=== PATIENT | male | born 1965 | race Caucasian/White ===

== ENCOUNTER 2022-10-10 09:14 | Outpatient (OUT) | payer MEDICARE, SELFPAY | END 2022-10-10 09:15 | LOC: CARD 09:16 | PROVIDERS: PCP Nurse Practitioner Family; Visit Provider Internal Medicine Interventional Cardiology | DX: I73.9 Peripheral vascular disease, unspecified (principal) | CPT/HCPCS: 93923 ==

== ENCOUNTER 2022-11-26 08:20 | Outpatient (OUT) | payer MEDICARE, SELFPAY ==
[2022-11-26 08:56] LABS: Basophils Percent Auto 0.2 % (0.2-2.0); Eosinophils Absolute Auto 0.1 10^3/uL (0.0-0.7); Eosinophils Percent Auto 1.6 % (0.9-7.0); Hematocrit 35.8 % (42.0-54.0); Hemoglobin 13.1 g/dL (14.0-18.0); Immature Granulocytes Abs Auto 0.03 10^3/uL (0.00-0.03); Immature Granulocytes Pct Auto 0.3 % (0.0-0.5); Lymphocytes Absolute Auto 2.7 10^3/uL (1.2-3.8); Lymphocytes Percent Auto 30.3 % (20.5-60.0); Mean Corpuscular HGB Conc 36.6 g/dL (29.9-35.2); Mean Corpuscular Hemoglobin 31.7 pg (25.9-34.0); Mean Corpuscular Volume 86.7 fL (80.0-94.0); Mean Platelet Volume 8.9 fL (9.5-13.5); Monocytes Absolute Auto 0.8 10^3/uL (0.3-0.8); Monocytes Percent Auto 8.4 % (1.7-12.0); Neutrophils Absolute Auto 5.3 10^3/uL (1.4-6.5); Neutrophils Percent Auto 59.2 % (43.0-75.0); Platelet Count 212 10^3/uL (150-450); Red Blood Count 4.13 10^6/uL (4.70-6.10); Red Cell Distribution Width 12.3 % (11.0-15.0)
[2022-11-26 10:09] LABS: Alanine Aminotransferase 34 U/L (16-63); Albumin Globulin Ratio 1.2; Albumin Level 3.9 g/dL (3.4-5.0); Alkaline Phosphatase 75 U/L (46-116); Anion Gap 10.2; Aspartate Amino Transferase 26 U/L (15-37); BUN Creatinine Ratio 9.1; Bilirubin Total 0.6 mg/dL (0.2-1.0); Calcium 8.8 mg/dL (8.5-10.1); Carbon Dioxide 27.6 mmol/L (21.0-32.0); Chloride 91 mmol/L (98-107); Chol HDL Ratio 2.4; Cholesterol 100 mg/dL (<=200); Estimated GFR (African America >60 (>=60); Estimated GFR (Non-African Ame >60 (>=60); Globulin 3.3 g/dL; Glucose 110 mg/dL (74-106); HDL Cholesterol 42 mg/dL (40-60); LDL Cholesterol Calculated 41.8 mg/dL; Potassium 4.8 mmol/L (3.5-5.1); Total Protein 7.2 g/dL (6.4-8.2); Triglycerides 81 mg/dL (<=150); VLDL CHOLESTEROL 16.2 mg/dL
[2022-11-26 10:22] LABS: Sodium 124 mmol/L (136-145)
== END 2022-11-26 08:21 | disposition home or self-care (01) ==
PROVIDERS: PCP Nurse Practitioner Family; Visit Provider Internal Medicine Interventional Cardiology
DX: E78.2 Mixed hyperlipidemia (principal)
CPT/HCPCS: 36415; 80053; 80061; 85025

== ENCOUNTER 2022-12-05 07:09 | Outpatient (RCR) | payer MEDICARE, SELFPAY | END 2022-12-10 13:52 | disposition home or self-care (01) | LOC: CR 07:09 | PROVIDERS: PCP Nurse Practitioner Family; Visit Provider Family Medicine | DX: I70.213 Atherosclerosis of native arteries of extremities with intermittent claudication, bilateral legs (principal) | CPT/HCPCS: 93668 ==

== ENCOUNTER 2023-05-10 10:20 | Outpatient (OUT) | payer MEDICARE, SELFPAY ==
[2023-05-10 10:35] LABS: Basophils Percent Auto 0.4 % (0.2-2.0); Eosinophils Absolute Auto 0.1 10^3/uL (0.0-0.7); Eosinophils Percent Auto 1.5 % (0.9-7.0); Hematocrit 38.7 % (42.0-54.0); Hemoglobin 13.7 g/dL (14.0-18.0); Immature Granulocytes Abs Auto 0.02 10^3/uL (0.00-0.03); Immature Granulocytes Pct Auto 0.3 % (0.0-0.5); Lymphocytes Absolute Auto 2.3 10^3/uL (1.2-3.8); Mean Corpuscular HGB Conc 35.4 g/dL (29.9-35.2); Mean Corpuscular Hemoglobin 31.5 pg (25.9-34.0); Mean Platelet Volume 8.6 fL (9.5-13.5); Monocytes Absolute Auto 0.5 10^3/uL (0.3-0.8); Monocytes Percent Auto 7.7 % (1.7-12.0); Neutrophils Absolute Auto 3.9 10^3/uL (1.4-6.5); Neutrophils Percent Auto 56.1 % (43.0-75.0); Platelet Count 211 10^3/uL (150-450); Red Blood Count 4.35 10^6/uL (4.70-6.10); Red Cell Distribution Width 12.6 % (11.0-15.0); White Blood Count 6.9 10^3/uL (4.0-11.0)
[2023-05-10 10:46] LABS: Estimated Average Glucose 123 mg/dL; Glycohemoglobin A1C 5.9 % (4.5-6.2)
[2023-05-10 11:17] LABS: Alanine Aminotransferase 33 U/L (16-63); Albumin Globulin Ratio 1.1; Alkaline Phosphatase 78 U/L (46-116); Anion Gap 13.7; Aspartate Amino Transferase 25 U/L (15-37); BUN Creatinine Ratio 12.8; Bilirubin Total 0.4 mg/dL (0.2-1.0); Calcium 9.2 mg/dL (8.5-10.1); Carbon Dioxide 24.5 mmol/L (21.0-32.0); Chloride 97 mmol/L (98-107); Chol HDL Ratio 3.4; Cholesterol 116 mg/dL (<=200); Estimated GFR (African America >60 (>=60); Estimated GFR (Non-African Ame >60 (>=60); Free T3 2.32 pg/mL (2.18-3.98); Globulin 3.6 g/dL; Glucose 95 mg/dL (74-106); HDL Cholesterol 34 mg/dL (40-60); Potassium 4.2 mmol/L (3.5-5.1); Sodium 131 mmol/L (136-145); Thyroid Stimulating Hormone 1.116 uIU/mL (0.358-3.740); Total Protein 7.6 g/dL (6.4-8.2); Triglycerides 168 mg/dL (<=150); Uric Acid 3.9 mg/dL (3.5-7.2); VLDL CHOLESTEROL 33.6 mg/dL
[2023-05-10 11:19] LABS: Prostate Specific Antigen Scrn 1.58 ng/mL (<=4.00)
[2023-05-11 12:07] LABS: Insulin 5.6 uIU/mL (2.6-24.9)
== END 2023-05-10 10:21 | disposition home or self-care (01) ==
PROVIDERS: PCP Nurse Practitioner Family; Visit Provider Nurse Practitioner Family
DX: I10 Essential (primary) hypertension (principal)
CPT/HCPCS: 36415; 80053; 80061; 83036; 83525; 84436; 84443; 84481; 84550; 85025; G0103

== ENCOUNTER 2024-06-15 09:16 | Outpatient (OUT) | payer OTHER, SELFPAY ==
--- OUTSIDE RECORDS SUMMARY | 2024-06-15 09:37 | XMS_ITS | CCD ---
Author Organization [facility] Care Team Providers Care Coding Assistant Name Role Phone UNKNOWN, PROVIDER Admitting Unavailable UNKNOWN, PROVIDER Attending Unavailable ORION, LISBET Referring Unavailable ORION, LISBET Primary Care Unavailable MASROOR, AURORA Admitting Unavailable MASROOR, AURORA Attending Unavailable UNKNOWN, PHYSICIAN Referring Unavailable UNKNOWN, PHYSICIAN Primary Care Unavailable [place] Procedure Practitioner Unavailab johann IZAGUIRRE, AURORA Surgeon Unavailable [place] Procedure Practitioner Unavailab EDNA Young Surgeon Unavailable ELIZABETH, ABELARDO Attending Unavailable MOUKARBEL, ABELARDO Admitting Unavailable ANTONINA, LISBET Primary Care Unavailable MOUKAJACKIE, ABELARDO Attending Unavailable MOUKARBELABELARDO Consulting Unavailable MOUKARBEL, ABELARDO Admitting Unavailable ANTONINA, LISBET Primary Care Unavailable LAUREANO, INDRA Admitting Unavailable LAUREANO, INDRA Attending Unavailable LAUREANO, INDRA Consulting Unavailable ANTONINA, LISBET Primary Care Unavailable ANTONINA, LISBET Admitting Unavailable ANTONINA, LISBET Attending Unavailable ANTONINA, LISBET Consulting Unavailable ANTONINA, LISBET Primary Care Unavailable ANTONINA, LISBET Admitting Unavailable ANTONINA, LISBET Attending Unavailable ANTONINA, LISBET Consulting Unavailable ANTONINA, LISBET Primary Care Unavailable MOUKASHAANEL, ABELARDO Attending Unavailable EDEN PERALES Attending Unavailable MOUKARBEL, ABELARDO Attending Unavailable MOUKARBEL, ABELARDO Attending Unavailable Problems Active Problems Problem Classification Problem Date Documented Date Episodic/Chronic Coronary atherosclerosis and other heart disease (6 sources) Atherosclerotic heart disease of [place] coronary artery without angina pectoris; Translations: [ASHD [place] CA W/O ANGINA PECTORIS] Onset: 10-24-2021 Chronic Disorders of lipid metabolism (2 sources) Mixed hyperlipidemia; Translations: [Mixed hyperlipidemia] Onset: 03-26-2023 Chronic Essential hypertension (3 sources) Essential (primary) hypertension; Translations: [ESSENTIAL PRIMARY HYPERTENSION] Onset: 12-26-2021 Chronic Peripheral and visceral atherosclerosis (2 sources) Peripheral vascular disease, unspecified; Translations: [Peripheral vascular disease, unspecified] Onset: 03-26-2023 Chronic Past or Other Problems Problem Classification Problem Date Documented Da te Episodic/Chronic Cardiac dysrhythmias (2 sources) Palpitations; Translations: [Palpitations] Onset: 09-23-2022 Episodic Coronary atherosclerosis and other heart disease (2 sources) Presence of aortocoronary bypass graft; Translations: [Presence of aortocoronary bypass graft] Onset: 03-26-2023 Episodic Deficiency and other anemia (5 sources) Anemia, unspecified; Translations: [ANEMIA UNSPECIFIED] Onset: 10-25-2021 Episodic Fluid and electrolyte disorders (1 source) Hypo-osmolality and hyponatremia; Translations: [HYPO-OSMOLALITY AND HYPONATREMIA] Onset: 12-26-2021 Episodic Genitourinary symptoms and ill-defined conditions (1 source) Other abnormal findings in urine; Translations: [OTHER ABNORMAL FINDINGS IN URINE] Onset: 12-26-2021 Episodic Other skin disorders (1 source) Generalized hyperhidrosis; Translations: [GENERALIZED HYPERHIDROSIS] Onset: 12-26-2021 Episodic Results Test Name Value Interpretation Reference Range Facility Office Visiton 09-16-2023 Follow-up visit [id number] Clau Keen 1965 M Date Provider Department Center 09/16/2023 EDEN BOOTHE DENIS Forrester Family History Problem Relation Age of Onset Diabetes Mother Coronary artery disease Father Family Status - Relation Status Age at Mother Father Level of Service:64991 [place] OFFICE/OUTPATIENT ESTABLISHED LOW MDM 20 MIN Reason for Visit and Comments: Coronary Artery Disease [187] Claudication [131] Normal [facility] Office Visiton 03-26-2023 Follow-up visit [id number] Clau Keen 1965 M Date Provider Department Center 03/26/2023 ABELARDO SHARIF DENIS Forrester Family History Problem Relation Age of Onset Diabetes Mother Coronary artery disease Father Family Status - Relation Status Age at Mother Father Level of Service:53691 [place] OFFICE/OUTPATIENT ESTABLISHED LOW MDM 20-29 MIN Reason for Visit and Comments: Follow-up [595151] Normal [facility] Office Visiton 11-26-2022 Follow-up visit [id number] Clau Keen 1965 M Date Provider Department Center 11/26/2022 ABELARDO SHARIF CARD [facility] Family History Problem Relation Age of Onset Diabetes Mother Coronary artery disease Father Family Status - Relation Status Age at Mother Father Level of Service:71947 [place] OFFICE/OUTPATIENT ESTABLISHED LOW MDM 20-29 MIN Reason for Visit and Comments: Follow-up [258214] - 2 month follow up Normal [facility] ECHOCARDIO M/2D COMPLETEon 0 10-09-2022 ECHOCARDIO M/2D COMPLETE Patient: CLAU KEEN Exam Date: 10/09/2022 : 1965 Gender:M Ordering : DR ABELARDO JOHNSON M.D. Admission #: [id number] Family : Order #: [id number] CLICK HERE TO VIEW EXAM ECHOCARDIOGRAM REPORT PROCEDURE: CARDIO PULMONARY ECHOCARDIO M/2D COMP INDICATIONS: CAD, Palpitations COMPARISON: None. DESCRIPTION: COMPLETE ECHOCARDIOGRAM Real-time transthoracic echocardiography with 2D, M-mode, spectral and color flow Doppler performed. QUALITY: Technical quality was good. LEFT VENTRICLE: Normal chamber size. Mild concentric left ventricular hypertrophy. Normal systolic function. Calculated left ventricular ejection fraction is normal at 65% LV EF: DIASTOLIC: Normal diastolic function. ATRIAL SEPTUM: LEFT ATRIUM: Normal chamber size. RIGHT ATRIUM: Mild dilatation. RIGHT VENTRICLE: Normal chamber size. Normal right ventricular systolic function. TRICUSPID VALVE: Normal mobility and thickness. No stenosis with mild regurgitation. Mild pulmonary hypertension. RVSP 40 mmHg MITRAL VALVE: Normal mobility and thickness. No evidence of mitral valve stenosis. There is no mitral annular calcification. Trivial mitral regurgitation. AORTIC VALVE: Normal trileaflet appearance. Mildly calcified aortic valve. Normal leaflet mobility. No evidence of aortic valve stenosis. Trivial aortic regurgitation. AORTIC ROOT: Normal diameter and appearance. PULMONIC VALVE: Normal thickness and mobility. No stenosis. No regurgitation. PERICARDIUM: No evidence of pericardial effusion. IVC: Collapses with inspirations. Normal size. PLEURA: CONCLUSION: 1. Mild concentric left ventricular hypertrophy. Normal ventricular systolic function. LVEF is 65%. 2. Normal diastolic function. 3. Mildly calcified aortic valve with no significant stenosis or regurgitation. 4. Mild tricuspid regurgitation. 5. Mildly elevated right-sided pressures. 6. No pericardial effusion. Adult Echocardiography Procedure Report Left Ventricle Left Atrium LA Volume Index (2D A2C): 47.03 ml, 47.03 ml Mitral Valve Right Ventricle Aorta Aortic Valve AoV Area (Peak Mitch): 3.64 cm2, 3.64 cm2 AoV Area (VTI): 2.94 cm2, 2.94 cm2 Tricuspid Valve Pulmonic Valve Peak Velocity: 0.97 m/s, 0.87 m/s Peak Gradient: 3.06 mm[Hg], 3.74 mm[Hg] Right Atrium Dictated by: Abelardo Johnson M.D. on 10/09/2022 at 18:18 Approved by: Abelardo Johnson M.D. on 10/09/2022 at 18:22 Normal [facility] Office Visiton 09-23-2022 Follow-up visit [id number] Clau Keen 1965 M Date Provider Department Center 09/23/2022 ABELARDO SHARIF [facility] Family History Problem Relation Age of Onset Diabetes Mother Coronary artery disease Father Family Status - Relation Status Age at Mother Father Level of Service:30435 [place] OFFICE/OUTPATIENT ESTABLISHED MOD MDM 30-39 MIN Reason for Visit and Comments: Coronary Artery Disease [187] Hyperlipidemia [182] Normal [facility] T4, T3U, FTI LABCORPon 12-22 Free Thyroxine Index 1.8 Normal 1.2-4.9 [facility] Comment on above: Performed By: #### C MP #### [facility] [address] [address] [address] Audra Herrmann T3 Uptake 32 % Normal 24-39 [facility] Comment on above: Performed By: #### C MP #### [facility] [address] [address] [address] Audra Herrmann T4 [Mass/Vol] 5.5 ug/dL Normal 4.5-12.0 [facility] Comment on above: Performed By: #### C MP #### [facility] [address] [address] [address] Audra Herrmann CBC AUTO DIFFon 12-21-2021 BASO # 0.0 103/ul Normal 0.0-0.1 [facility] Comment on above: Performed By: #### C BC #### [facility] [address] [address] [address] Audra Herrmann Basophils/100 WBC (Bld) 0.4 % Normal 0.2-2.0 [facility] Comment on above: Performed By: #### C BC #### [facility] [address] [address] [address] Audra Herrmann EO # 0.1 103/ul Normal 0.0-0.7 [facility] Comment on above: Performed By: #### C BC #### [facility] [address] [place] [address] Dr. Audra Herrmann Eosinophils/100 WBC (Bld) 1.3 % Normal 0.9-7.0 [facility] Comment on above: Performed By: #### C BC #### [facility] [address] [place] [address] Dr. Audra Herrmann Erythrocyte distribution width (RBC) [Ratio] 15.2 % Critically high 11.0-15.0 [facility] Comment on above: Performed By: #### C BC #### [facility] [address] [place] [address] Dr. Audra Herrmann Hematocrit (Bld) [Volume fraction] 42.6 % Normal 42.0-54.0 [facility] Comment on above: Performed By: #### C BC #### [facility] [address] [place] [address] Dr. Audra Herrmann Hemoglobin (Bld) [Mass/Vol] 14.8 g/dL Normal 14.0-18.0 [facility] Comment on above: Performed By: #### C BC #### [facility] [address] [place] [address] Dr. Audra Herrmann IG # 0.02 10e3/ul Normal 0.00-0.03 [facility] Comment on above: Performed By: #### C BC #### [facility] [address] [place] [address] Dr. Audra Herrmann IG % 0.2 % Normal 0.0-0.5 [facility] Comment on above: Performed By: #### C BC #### [facility] [address] [place] [address] Dr. Audra Herrmann LYMPH # 3.1 103/ul Normal 1.2-3.8 [facility] Comment on above: Performed By: #### C BC #### [facility] [address] [place] [address] Dr. Audra Herrmann Lymphocytes/100 WBC (Bld) 37.1 % Normal 20.5-60.0 [facility] Comment on above: Performed By: #### C BC #### [facility] [address] [place] [address] Dr. Audra Herrmann MANUAL DIFF REQ NO Normal [facility] Comment on above: Performed By: #### C BC #### [facility] [address] [place] [address] Dr. Audra Herrmann MCH (RBC) [Entitic mass] 32.0 pg Normal 25.9-34.0 [facility] Comment on above: Performed By: #### C BC #### [facility] [address] [place] [address] Dr. Audra Herrmann MCHC (RBC) [Mass/Vol] 34.7 g/dL Normal 29.9-35.2 [facility] Comment on above: Performed By: #### C BC #### [facility] [address] [place] [address] Dr. Audra Herrmann MCV (RBC) [Entitic vol] 92.0 fL Normal 80.0-94.0 [facility] Comment on above: Performed By: #### C BC #### [facility] [address] [place] [address] Dr. Audra Herrmann MONO # 0.7 103/ul Normal 0.3-0.8 [facility] Comment on above: Performed By: #### C BC #### [facility] [address] [place] [address] Dr. Audra Herrmann Monocytes/100 WBC (Bld) 8.6 % Normal 1.7-12.0 [facility] Comment on above: Performed By: #### C BC #### [facility] [address] [place] [address] Dr. Audra Herrmann NEUT # 4.4 103/ul Normal 1.4-6.5 [facility] Comment on above: Performed By: #### C BC #### [facility] [address] [place] [address] Dr. Audra Herrmann Neutrophils/100 WBC (Bld) 52.4 % Normal 43.0-75.0 [facility] Comment on above: Performed By: #### C BC #### [facility] [address] [place] [address] Dr. Adura Herrmann Platelet mean volume (Bld) [Entitic vol] 8.8 fL Critically low 9.5-13.5 [facility] Comment on above: Performed By: #### C BC #### [facility] [address] [place] [address] Dr. Audra Herrmann PLT 241 103/ul Normal 150-450 [facility] Comment on above: Performed By: #### C BC #### [facility] [address] [place] [address] Dr. Audra Herrmann RBC 4.63 106/ul Critically low 4.70-6.10 [facility] Comment on above: Performed By: #### C BC #### [facility] [address] [place] [address] Dr. Audra Herrmann WBC 8.4 103/ul Normal 4.0-11.0 [facility] Comment on above: Performed By: #### C BC #### [facility] [address] [place] [address] Dr. Audra Herrmann CULTURE URINEon 12-21-2021 CULTURE URINE Culture Observations : No growth Normal [facility] Comment on above: Performed By: #### U RCX #### [facility] [address] [place] [address] Dr. Audra Herrmann IRONon 12-21-2021 Iron [Mass/Vol] 101.0 ug/dL Normal 65.0-175.0 [facility] Comment on above: Performed By: #### I MARNIE #### [facility] [address] [place] [address] Dr. Audra Herrmann PROF 14(COMP METB)on 022 Albumin [Mass/Vol] 4.4 g/dL Normal 3.4-5.0 [facility] Comment on above: Performed By: #### C MP, TSH #### [facility] [address] [place] [address] Dr. Audra Herrmann Albumin/Globulin [Mass ratio] 1.2 {ratio} Normal [facility] Comment on above: Performed By: #### C MP, TSH #### [facility] [address] [place] [address] Dr. Audra Herrmann ALP [Catalytic activity/Vol] 66 U/L Normal 46-116 [facility] Comment on above: Performed By: #### C MP, TSH #### [facility] [address] [place] [address] Dr. Audra Herrmann ALT [Catalytic activity/Vol] 33 U/L Normal 16-63 [facility] Comment on above: Performed By: #### C MP, TSH #### [facility] [address] [place] [address] Dr. Audra Herrmann Anion gap [Moles/Vol] 13.6 mmol/L Normal [facility] Comment on above: Performed By: #### C MP, TSH #### [facility] [address] [place] [address] Dr. Audra Herrmann AST [Catalytic activity/Vol] 38 U/L Critically high 15-37 [facility] Comment on above: Performed By: #### C MP, TSH #### [facility] [address] [address] [address] Audra Herrmann Bilirubin [Mass/Vol] 0.7 mg/dL Normal 0.2-1.0 [facility] Comment on above: Performed By: #### C MP, TSH #### [facility] [address] [place] [address] Dr. Audra Herrmann Calcium [Mass/Vol] 9.3 mg/dL Normal 8.5-10.1 [facility] Comment on above: Performed By: #### C MP, TSH #### [facility] [address] [place] [address] Dr. Audra Herrmann Chloride [Moles/Vol] 95 mmol/L Critically low 98-107 [facility] Comment on above: Performed By: #### C MP, TSH #### [facility] [address] [address] [address] Audra Herrmann CO2 [Moles/Vol] 28.0 mmol/L Normal 21.0-32.0 [facility] Comment on above: Performed By: #### C MP, TSH #### [facility] [address] [place] [address] Dr. Audra Herrmann Creatinine [Mass/Vol] 1.32 mg/dL Critically high 0.70-1.30 [facility] Comment on above: Performed By: #### C MP, TSH #### [facility] [address] [place] [address] Dr. Audra Herrmann EGFR-AF NIUEAN >60 Normal >=60 [facility] Comment on above: Performed By: #### C MP, TSH #### [facility] [address] [place] [address] Dr. Audra Herrmann EGFR-NON AF NIUEAN 56 mL/min/1.73m2 Critically low >=60 [facility] Comment on above: Performed By: #### C MP, TSH #### [facility] [address] [place] [address] Dr. Audra Herrmann Globulin (S) [Mass/Vol] 3.7 g/dL Normal [facility] Comment on above: Performed By: #### C MP, TSH #### [facility] [address] [place] [address] Dr. Audra Herrmann Glucose [Mass/Vol] 118 mg/dL Critically high 74-106 [facility] Comment on above: Performed By: #### C MP, TSH #### [facility] [address] [place] [address] Dr. Audra Herrmann Potassium [Moles/Vol] 4.6 mmol/L Normal 3.5-5.1 [facility] Comment on above: Performed By: #### C MP, TSH #### [facility] [address] [place] [address] Dr. Audra Herrmann Protein [Mass/Vol] 8.1 g/dL Normal 6.4-8.2 [facility] Comment on above: Performed By: #### C MP, TSH #### [facility] [address] [place] [address] Dr. Audra Herrmann Sodium [Moles/Vol] 132 mmol/L Critically low 136-145 [facility] Comment on above: Performed By: #### C MP, TSH #### [facility] [address] [place] [address] Dr. Audra Herrmann Urea nitrogen [Mass/Vol] 13.0 mg/dL Normal 7.0-18.0 [facility] Comment on above: Performed By: #### C MP, TSH #### [facility] [address] [place] [address] Dr. Audra Herrmann Urea nitrogen/Creatinine [Mass ratio] 9.8 mg/mg Normal [facility] Comment on above: Performed By: #### C MP, TSH #### [facility] [address] [place] [address] Dr. Audra Herrmann TSHon 12-21-2021 TSH 1.947 uIU/mL Normal 0.358-3.740 [facility] Comment on above: Performed By: #### C MP, TSH #### [facility] [address] [place] [address] Dr. Audra Herrmann UA RANDOM W/MICROSCOPICon BACTERIA NONE SEEN Normal NONE SEEN [facility] Comment on above: Performed By: #### U AMIC #### [facility] [address] [place] [address] Dr. Audra Herrmann Bilirubin Ql (U) Negative Normal NEGATIVE [facility] Comment on above: Performed By: #### U AMIC #### [facility] [address] [place] [address] Dr. Audra Herrmann CAST NONE SEEN Normal NONE SEEN [facility] Comment on above: Performed By: #### U AMIC #### [facility] [address] [place] [address] Dr. Audra Herrmann Clarity (U) SL CLOUDY Abnormal CLEAR [facility] Comment on above: Performed By: #### U AMIC #### [facility] [address] [address] [address] Audra Herrmann Color (U) YELLOW Normal YELLOW [facility] Comment on above: Performed By: #### U AMIC #### [facility] [address] [address] [address] Audra Herrmann Crystals LM Nom (Urine sed) NONE SEEN Normal NONE SEEN [facility] Comment on above: Performed By: #### U AMIC #### [facility] [address] [address] [address] Audra Herrmann Epithelial cells LM Ql (Urine sed) RARE Normal NONE SEEN /RARE [facility] Comment on above: Performed By: #### U AMIC #### [facility] [address] [place] [address] Dr. Audra Herrmann Glucose Ql (U) 100 mg/dl Abnormal NEGATIVE [facility] Comment on above: Performed By: #### U AMIC #### [facility] [address] [place] [address] Dr. Audra Herrmann Hemoglobin Ql (U) Negative Normal NEGATIVE [facility] Comment on above: Performed By: #### U AMIC #### [facility] [address] [place] [address] Dr. Audra Herrmann Ketones Ql (U) Negative Normal NEGATIVE [facility] Comment on above: Performed By: #### U AMIC #### [facility] [address] [address] [address] Audra Herrmann LEUKOCYTES Negative Normal NEGATIVE [facility] Comment on above: Performed By: #### U AMIC #### [facility] [address] [address] [address] Audra Herrmann MUCOUS TRACE Abnormal NONE SEEN [facility] Comment on above: Performed By: #### U AMIC #### [facility] [address] [place] [address] Dr. Audra Herrmann Nitrite Ql (U) Negative Normal NEGATIVE [facility] Comment on above: Performed By: #### U AMIC #### [facility] [address] [place] [address] Dr. Audra Herrmann pH (U) 6.0 [pH] Normal 5-9 [facility] Comment on above: Performed By: #### U AMIC #### [facility] [address] [place] [address] Dr. Audra Herrmann RBC 0-2 Normal 0-2 [facility] Comment on above: Performed By: #### U AMIC #### [facility] [address] [place] [address] Dr. Audra Herrmann SPEC GRAVITY 1.010 Normal 1.005-<=1.025 [facility] Comment on above: Performed By: #### U AMIC #### [facility] [address] [place] [address] Dr. Audra Herrmann UA PROTEIN Negative Normal NEGATIVE/ TRACE [facility] Comment on above: Performed By: #### U AMIC #### [facility] [address] [place] [address] Dr. Audra Herrmann Urobilinogen Qn (U) 0.2 {Mague'U}/dL Normal 0.2 - 1. 0 [facility] Comment on above: Performed By: #### U AMIC #### [facility] [address] [place] [address] Dr. Audra Herrmann WBC NONE SEEN Normal NONE SEEN [facility] Comment on above: Performed By: #### U AMIC #### [facility] [address] [place] [address] Dr. Audra Herrmann CBC AUTO DIFFon 10-24-2021 BASO # 0.0 103/ul Normal 0.0-0.1 [facility] Comment on above: Performed By: #### C BC #### [facility] [address] [place] [address] Dr. Audra Herrmann Basophils/100 WBC (Bld) 0.4 % Normal 0.2-2.0 [facility] Comment on above: Performed By: #### C BC #### [facility] [address] [place] [address] Dr. Audra Herrmann EO # 0.1 103/ul Normal 0.0-0.7 [facility] Comment on above: Performed By: #### C BC #### [facility] [address] [place] [address] Dr. Audra Herrmann Eosinophils/100 WBC (Bld) 0.6 % Critically low 0.9-7.0 [facility] Comment on above: Performed By: #### C BC #### [facility] [address] [place] [address] Dr. Audra Herrmann Erythrocyte distribution width (RBC) [Ratio] 13.1 % Normal 11.0-15.0 [facility] Comment on above: Performed By: #### C BC #### [facility] [address] [place] [address] Dr. Audra Herrmann Hematocrit (Bld) [Volume fraction] 40.0 % Critically low 42.0-54.0 [facility] Comment on above: Performed By: #### C BC #### [facility] [address] [place] [address] Dr. Audra Herrmann Hemoglobin (Bld) [Mass/Vol] 14.1 g/dL Normal 14.0-18.0 [facility] Comment on above: Performed By: #### C BC #### [facility] [address] [place] [address] Dr. Audra Herrmann IG # 0.06 10e3/ul Critically high 0.00-0.03 [facility] Comment on above: Performed By: #### C BC #### [facility] [address] [place] [address] Dr. Audra Herrmann IG % 0.6 % Critically high 0.0-0.5 [facility] Comment on above: Performed By: #### C BC #### [facility] [address] [place] [address] Dr. Audra Herrmann LYMPH # 2.3 103/ul Normal 1.2-3.8 [facility] Comment on above: Performed By: #### C BC #### [facility] [address] [place] [address] Dr. Audra Herrmann Lymphocytes/100 WBC (Bld) 24.3 % Normal 20.5-60.0 [facility] Comment on above: Performed By: #### C BC #### [facility] [address] [place] [address] Dr. Audra Herrmann MANUAL DIFF REQ NO Normal [facility] Comment on above: Performed By: #### C BC #### [facility] [address] [place] [address] Dr. Audra Herrmann MCH (RBC) [Entitic mass] 30.9 pg Normal 25.9-34.0 [facility] Comment on above: Performed By: #### C BC #### [facility] [address] [place] [address] Dr. Audra Herrmann MCHC (RBC) [Mass/Vol] 35.3 g/dL Critically high 29.9-35.2 [facility] Comment on above: Performed By: #### C BC #### [facility] [address] [place] [address] Dr. Audra Herrmann MCV (RBC) [Entitic vol] 87.7 fL Normal 80.0-94.0 [facility] Comment on above: Performed By: #### C BC #### [facility] [address] [place] [address] Dr. Audra Herrmann MONO # 0.8 103/ul Normal 0.3-0.8 [facility] Comment on above: Performed By: #### C BC #### [facility] [address] [place] [address] Dr. Audra Herrmann Monocytes/100 WBC (Bld) 8.9 % Normal 1.7-12.0 [facility] Comment on above: Performed By: #### C BC #### [facility] [address] [place] [address] Dr. Audra Herrmann NEUT # 6.1 103/ul Normal 1.4-6.5 [facility] Comment on above: Performed By: #### C BC #### [facility] [address] [place] [address] Dr. Audra Herrmann Neutrophils/100 WBC (Bld) 65.2 % Normal 43.0-75.0 [facility] Comment on above: Performed By: #### C BC #### [facility] [address] [place] [address] Dr. Audra Herrmann Platelet mean volume (Bld) [Entitic vol] 8.6 fL Critically low 9.5-13.5 [facility] Comment on above: Performed By: #### C BC #### [facility] [address] [place] [address] Dr. Audra Herrmann PLT 208 103/ul Normal 150-450 [facility] Comment on above: Performed By: #### C BC #### [facility] [address] [place] [address] Dr. Audra Herrmann RBC 4.56 106/ul Critically low 4.70-6.10 [facility] Comment on above: Performed By: #### C BC #### [facility] [address] [place] [address] Dr. Audra Herrmann WBC 9.3 103/ul Normal 4.0-11.0 [facility] Comment on above: Performed By: #### C BC #### [facility] [address] [place] [address] Dr. Audra Herrmann CPKon 10-24-2021 CK [Catalytic activity/Vol] 93 U/L Normal 39-308 [facility] Comment on above: Performed By: #### C MP #### [facility] [address] [place] [address] Dr. Audra Herrmann IRONon 10-24-2021 Iron [Mass/Vol] 40.0 ug/dL Critically low 65.0-175.0 [facility] Comment on above: Performed By: #### I MARNIE #### [facility] [address] [place] [address] Dr. Audra Herrmann PROF 14(COMP METB)on Albumin [Mass/Vol] 4.3 g/dL Normal 3.4-5.0 [facility] Comment on above: Performed By: #### C MP #### [facility] [address] [address] [address] Audra Herrmann Albumin/Globulin [Mass ratio] 1.2 {ratio} Normal [facility] Comment on above: Performed By: #### C MP #### [facility] [address] [place] [address] Dr. Audra Herrmann ALP [Catalytic activity/Vol] 88 U/L Normal 46-116 [facility] Comment on above: Performed By: #### C MP #### [facility] [address] [place] [address] Dr. Audra Herrmann ALT [Catalytic activity/Vol] 49 U/L Normal 16-63 [facility] Comment on above: Performed By: #### C MP #### [facility] [address] [place] [address] Dr. Audra Herrmann Anion gap [Moles/Vol] 13.9 mmol/L Normal [facility] Comment on above: Performed By: #### C MP #### [facility] [address] [place] [address] Dr. Audra Herrmann AST [Catalytic activity/Vol] 41 U/L Critically high 15-37 [facility] Comment on above: Performed By: #### C MP #### [facility] [address] [place] [address] Dr. Audra Herrmann Bilirubin [Mass/Vol] 0.4 mg/dL Normal 0.2-1.0 [facility] Comment on above: Performed By: #### C MP #### [facility] [address] [place] [address] Dr. Audra Herrmann Calcium [Mass/Vol] 9.3 mg/dL Normal 8.5-10.1 [facility] Comment on above: Performed By: #### C MP #### [facility] [address] [place] [address] Dr. Audra Herrmann Chloride [Moles/Vol] 99 mmol/L Normal 98-107 [facility] Comment on above: Performed By: #### C MP #### [facility] [address] [place] [address] Dr. Audra Herrmann CO2 [Moles/Vol] 25.8 mmol/L Normal 21.0-32.0 [facility] Comment on above: Performed By: #### C MP #### [facility] [address] [address] [address] Audra Herrmann Creatinine [Mass/Vol] 2.17 mg/dL Critically high 0.70-1.30 [facility] Comment on above: Performed By: #### C MP #### [facility] [address] [address] [address] Audra Herrmann EGFR-AF NIUEAN 38 mL/min/1.73m2 Critically low >=60 [facility] Comment on above: Performed By: #### C MP #### [facility] [address] [address] [address] Audra Herrmann EGFR-NON AF NIUEAN 31 mL/min/1.73m2 Critically low >=60 [facility] Comment on above: Performed By: #### C MP #### [facility] [address] [address] [address] Audra Herrmann Globulin (S) [Mass/Vol] 3.7 g/dL Normal [facility] Comment on above: Performed By: #### C MP #### [facility] [address] [address] [address] Audra Herrmann Glucose [Mass/Vol] 131 mg/dL Critically high 74-106 [facility] Comment on above: Performed By: #### C MP #### [facility] [address] [address] [address] Audra Herrmann Potassium [Moles/Vol] 4.7 mmol/L Normal 3.5-5.1 [facility] Comment on above: Performed By: #### C MP #### [facility] [address] [address] [address] Audra Herrmann Protein [Mass/Vol] 8.0 g/dL Normal 6.4-8.2 [facility] Comment on above: Performed By: #### C MP #### [facility] [address] [address] [address] Audra Herrmann Sodium [Moles/Vol] 134 mmol/L Critically low 136-145 Th e [facility] Comment on above: Performed By: #### C MP #### [facility] [address] [place], [place] [address] Dr. Audra Herrmann Urea nitrogen [Mass/Vol] 26.0 mg/dL Critically high 7.0-18.0 [facility] Comment on above: Performed By: #### C MP #### [facility] [address] [place], [place] [address] Dr. Audra Herrmann Urea nitrogen/Creatinine [Mass ratio] 12.0 mg/mg Normal [facility] Comment on above: Performed By: #### C MP #### [facility] [address] [place], [place] [address] Dr. Audra Herrmann BASIC METABOLIC PANELon 12-11 Calcium [Mass/Vol] 8.6 mg/dL Normal 8.6-10.3 [facility] Comment on above: Order Comment: Unkno wn Performed By: #### 3 1595 #### [facility] [address] [place] [address], [place] Chloride [Moles/Vol] 100 mmol/L Normal 98-107 [facility] Comment on above: Order Comment: Unkno wn Performed By: #### 3 1595 #### [facility] [address] [place] [address], [place] CO2 [Moles/Vol] 28 mmol/L Normal 21-31 [facility] Comment on above: Order Comment: Unkno wn Performed By: #### 3 1595 #### [facility] [address] [place] [address], [place] Creatinine [Mass/Vol] 0.70 mg/dL Normal 0.70-1.30 [facility] Comment on above: Order Comment: Unkno wn Performed By: #### 3 1595 #### [facility] [address] [place] [address], [place] GFR/1.73 sq M predicted among blacks MDRD (S/P/Bld) [Vol rate/Area] mL/min/{1.73_m2} Normal >60 [facility] Comment on above: Order Comment: Unkno wn Performed By: #### 3 1595 #### [facility] [address] [place] [address], [facility] GFR/1.73 sq M predicted among non-blacks MDRD (S/P/Bld) [Vol rate/Area] mL/min/{1.73_m2} Normal >60 [facility] Comment on above: Order Comment: Unkno wn Performed By: #### 3 1595 #### [facility] [address] [place] [address], [facility] Glucose [Mass/Vol] 118 mg/dL High 70-100 [facility] Comment on above: Order Comment: Unkno wn Performed By: #### 3 1595 #### [facility] [address] [place] [address], [facility] Potassium [Moles/Vol] 3.3 mmol/L Low 3.5-5.1 [facility] Comment on above: Order Comment: Unkno wn Performed By: #### 3 1595 #### [facility] [address] [place] [address], [facility] Sodium [Moles/Vol] 135 mmol/L Low 136-145 [facility] Comment on above: Order Comment: Unkno wn Performed By: #### 3 1595 #### [facility] [address] [place] [address], [facility] Urea nitrogen [Mass/Vol] 6 mg/dL Low 7-25 [facility] Comment on above: Order Comment: Unkno wn Performed By: #### 3 1595 #### [facility] [address] [place] [address], [facility] CBC COMPLETE BLOOD COUNTon 0 - Erythrocyte distribution width (RBC) [Ratio] 12.3 % Normal 11.5-15.0 [facility] Comment on above: Order Comment: Unkno wn Performed By: #### 3 1595 #### [facility] [address] [place] [address], [facility] Hematocrit (Bld) [Volume fraction] 30.1 % Low 39.0-50.0 [facility] Comment on above: Order Comment: Unkno wn Performed By: #### 3 1595 #### [facility] [address] [place] [address], [facility] Hemoglobin (Bld) [Mass/Vol] 10.7 g/dL Low 13.0-17.0 [facility] Comment on above: Order Comment: Unkno wn Performed By: #### 3 1595 #### [facility] [address] [place] [address], [facility] MCH (RBC) [Entitic mass] 32.8 pg Normal 27.0-33.0 [facility] Comment on above: Order Comment: Unkno wn Performed By: #### 3 1595 #### [facility] [address] [place] [address], [facility] MCHC (RBC) [Mass/Vol] 35.5 g/dL High 32.0-35.0 [facility] Comment on above: Order Comment: Unkno wn Performed By: #### 3 1595 #### [facility] [address] [place] [address], [facility] MCV (RBC) [Entitic vol] 92.3 fL Normal 82.0-98.0 [facility] Comment on above: Order Comment: Unkno wn Performed By: #### 3 1595 #### [facility] [address] [place] [id number], [facility] Nucleated RBC/100 WBC (Bld) [Ratio] 0 % Normal 0-0 [facility] Comment on above: Order Comment: Unkno wn Performed By: #### 3 1595 #### [facility] [address] [place] [address], [facility] PLAT CNT 128 10*3/uL Low 150-400 [facility] Comment on above: Order Comment: Unkno wn Performed By: #### 3 1595 #### [facility] [address] [place] [address], [facility] RBC (Bld) [#/Vol] 3.26 10*6/uL Low 4.20-5.70 [facility] Comment on above: Order Comment: Unkno wn Performed By: #### 3 1595 #### [facility] [address] [place] [address], [place] WBC (Bld) [#/Vol] 10.24 10*3/uL Normal 4.00-10.60 [facility] Comment on above: Order Comment: Unkno wn Performed By: #### 3 1595 #### [facility] [address] [facility] [place] [address], [facility] MAGNESIUM BLOODon 12-31-2018 Magnesium [Mass/Vol] 2.0 mg/dL Normal 1.9-2.7 [facility] Comment on above: Order Comment: Unkno wn Performed By: #### 3 1595 #### [facility] [address] [place] [address], [facility] POC GLUCOSE LABon 12-31-2018 Glucose [Mass/Vol] 158 mg/dL High 70-100 [facility] Comment on above: Performed By: #### 3 1595 #### [facility] [address] [place] [address], [place] Glucose [Mass/Vol] 116 mg/dL High 70-100 [facility] Comment on above: Performed By: #### 3 1595 #### [facility] [address] [place] [address], [place] Glucose [Mass/Vol] 118 mg/dL High 70-100 [facility] Comment on above: Performed By: #### 3 1595 #### [address] [address], [facility] PORTABLE CHEST 1 VIEWon 12-11 PORTABLE CHEST 1 VIEW [facility] Department of Radiology [address] [place] [id number] ======== Patient Name: CLAU KEEN : 1965 Sex: M Age: Race: White Pt. Location: [id number] Patient Status: I Ordered Date: 12/31/2018 5:00:00 AM Completed Date: 12/31/2018 07:16 AM Requesting Provider: AYSE BOWMAN Attending Provider: AURORA IZAGUIRER Report Copy To: Signs & Symptoms: Post OP History: See Comments Comments: Other, post-op CABG Exam: PORTABLE CHEST 1 VIEW ======== PORTABLE CHEST 1 VIEW 12/31/2018 7:16 AM EDT SIGNS AND SYMPTOMS: Post OP TECHNOLOGIST COMMENTS: s/p CABG QUESTION FOR THE RADIOLOGIST: Other, post-op CABG PROTOCOL: AP(PA) view was obtained. COMPARISON: Chest x-ray 31/05/2018. FINDINGS: Trachea is midline. Mildly tortuous aorta. Unchanged enlarged cardiomediastinal silhouette. Persistent left basilar platelike atelectasis with elevation of left hemidiaphragm and right lower lobe atelectasis. No significant effusion or pneumothorax. No acute osseous abnormality. No subdiaphragmatic free air. Surgical clips visualized over the right lower neck. Sternotomy wires appear intact. Surgical clips visualized over the left upper abdomen and calcified mass overlying the right upper abdomen. Right Glenoid soft tissue anchors are visualized. IMPRESSION: Persistent left basilar platelike atelectasis with elevation of left hemidiaphragm. Mild right lower lobe atelectasis. Approved by:Aurora Houser on 12/31/2018 11:18 AM EDT. I, Jacob Son, have reviewed the images and report and concur with these findings. Electronically signed by:Jacob Son. Transcribed by: [email or web address], User Resident: AURORA HOUSER Electronically Signed by: JACOB SON @ 12/31/2018 01:28 PM I personally read this/these film(s) with this resident Normal [facility] Comment on above: Order Comment: Other , post-op CABG BASIC METABOLIC PANELon 12-11 Calcium [Mass/Vol] 8.4 mg/dL Low 8.6-10.3 [facility] Comment on above: Order Comment: , Henry ws (X-RAY, CHEST): Radiologic Protocol , Views (X-RAY, CHEST): Radiologic Protocol , , , Ordering Provider - AURORA IZAGUIRRE MD , Performed By: #### 0 0071 ####[facility] Chloride [Moles/Vol] 100 mmol/L Normal 98-107 [facility] Comment on above: Order Comment: , Henry ws (X-RAY, CHEST): Radiologic Protocol , Views (X-RAY, CHEST): Radiologic Protocol , , , Ordering Provider - AURORA IZAGUIRRE MD , Performed By: #### 0 0071 ####[facility] CO2 [Moles/Vol] 28 mmol/L Normal 21-31 [facility] Comment on above: Order Comment: , Henry ws (X-RAY, CHEST): Radiologic Protocol , Views (X-RAY, CHEST): Radiologic Protocol , , , Ordering Mindy IZAGUIRRE MD , Performed By: #### 0 0071 ####[place] [id number] Creatinine [Mass/Vol] 0.82 mg/dL Normal 0.70-1.30 [facility] Comment on above: Order Comment: , Vie ws (X-RAY, CHEST): Radiologic Protocol , Views (X-RAY, CHEST): Radiologic Protocol , , , Ordering Mindy IZAGUIRRE MD , Performed By: #### 0 0071 ####[address] GFR/1.73 sq M predicted among blacks MDRD (S/P/Bld) [Vol rate/Area] mL/min/{1.73_m2} Normal >60 [facility] Comment on above: Order Comment: , Vie ws (X-RAY, CHEST): Radiologic Protocol , Views (X-RAY, CHEST): Radiologic Protocol , , , Ordering Mindy IZAGUIRRE MD , Performed By: #### 0 0071 ####[place] [address], [facility] GFR/1.73 sq M predicted among non-blacks MDRD (S/P/Bld) [Vol rate/Area] mL/min/{1.73_m2} Normal >60 [facility] Comment on above: Order Comment: , Vie ws (X-RAY, CHEST): Radiologic Protocol , Views (X-RAY, CHEST): Radiologic Protocol , , , Ordering Mindy IZAGUIRRE MD , Performed By: #### 0 0071 ####[facility] Glucose [Mass/Vol] 171 mg/dL High 70-100 [facility] Comment on above: Order Comment: , Vie ws (X-RAY, CHEST): Radiologic Protocol , Views (X-RAY, CHEST): Radiologic Protocol , , , Ordering Mindy IZAGUIRRE MD , Performed By: #### 0 0071 ####[facility] Potassium [Moles/Vol] 3.5 mmol/L Normal 3.5-5.1 [facility] Comment on above: Order Comment: , Vie ws (X-RAY, CHEST): Radiologic Protocol , Views (X-RAY, CHEST): Radiologic Protocol , , , Ordering Mindy IZAGUIRRE MD , Performed By: #### 0 0071 ####[facility] [place] [address], [facility] Sodium [Moles/Vol] 133 mmol/L Low 136-145 [facility] Comment on above: Order Comment: , Vie ws (X-RAY, CHEST): Radiologic Protocol , Views (X-RAY, CHEST): Radiologic Protocol , , , Ordering Mindy IZAGUIRRE MD , Performed By: #### 0 0071 ####[facility] [place] [address], [facility] Urea nitrogen [Mass/Vol] 5 mg/dL Low 7-25 [facility] Comment on above: Order Comment: , Vie ws (X-RAY, CHEST): Radiologic Protocol , Views (X-RAY, CHEST): Radiologic Protocol , , , Ordering Mindy IZAGUIRRE MD , Performed By: #### 0 0071 ####[facility] CBC COMPLETE BLOOD COUNTon 0 12-30-2018 Erythrocyte distribution width (RBC) [Ratio] 12.7 % Normal 11.5-15.0 [facility] Comment on above: Order Comment: , Vie ws (X-RAY, CHEST): Radiologic Protocol , Views (X-RAY, CHEST): Radiologic Protocol , , , Ordering Provider - AURORA IZAGUIRRE MD , Performed By: #### 5 [id number] ####[facility] [place] [address] Hematocrit (Bld) [Volume fraction] 33.1 % Low 39.0-50.0 [facility] Comment on above: Order Comment: , Vie ws (X-RAY, CHEST): Radiologic Protocol , Views (X-RAY, CHEST): Radiologic Protocol , , , Ordering Provider - AURORA IZAGUIRRE MD , Performed By: #### 5 0608 ####[address] Hemoglobin (Bld) [Mass/Vol] 11.0 g/dL Low 13.0-17.0 [facility] Comment on above: Order Comment: , Vie ws (X-RAY, CHEST): Radiologic Protocol , Views (X-RAY, CHEST): Radiologic Protocol , , , Ordering Provider - AURORA IZAGUIRRE MD , Performed By: #### 5 0608 ####[facility] [place] [address] MCH (RBC) [Entitic mass] 32.4 pg Normal 27.0-33.0 [facility] Comment on above: Order Comment: , Vie ws (X-RAY, CHEST): Radiologic Protocol , Views (X-RAY, CHEST): Radiologic Protocol , , , Ordering Provider Aliyah IZAGUIRRE MD , Performed By: #### 5 0608 ####[address] MCHC (RBC) [Mass/Vol] 33.2 g/dL Normal 32.0-35.0 [facility] Comment on above: Order Comment: , Vie ws (X-RAY, CHEST): Radiologic Protocol , Views (X-RAY, CHEST): Radiologic Protocol , , , Ordering Provider Aliyah IZAGUIRRE MD , Performed By: #### 5 0608 ####[address] MCV (RBC) [Entitic vol] 97.4 fL Normal 82.0-98.0 [facility] Comment on above: Order Comment: , Vie ws (X-RAY, CHEST): Radiologic Protocol , Views (X-RAY, CHEST): Radiologic Protocol , , , Ordering Mindy IZAGUIRRE MD , Performed By: #### 5 0608 ####[address] Nucleated RBC/100 WBC (Bld) [Ratio] 0 % Normal 0-0 [facility] Comment on above: Order Comment: , Vie ws (X-RAY, CHEST): Radiologic Protocol , Views (X-RAY, CHEST): Radiologic Protocol , , , Ordering Mindy IZAGUIRRE MD , Performed By: #### 5 0608 ####[address] PLAT CNT 123 10*3/uL Low 150-400 [facility] Comment on above: Order Comment: , Henry ws (X-RAY, CHEST): Radiologic Protocol , Views (X-RAY, CHEST): Radiologic Protocol , , , Ordering Provider Aliyah IZAGUIRRE MD , Performed By: #### 5 0608 ####[facility] RBC (Bld) [#/Vol] 3.40 10*6/uL Low 4.20-5.70 [facility] Comment on above: Order Comment: , Virory ws (X-RAY, CHEST): Radiologic Protocol , Views (X-RAY, CHEST): Radiologic Protocol , , , Ordering Provider - AURORA IZAGUIRRE MD , Performed By: #### 5 0608 ####[facility] WBC (Bld) [#/Vol] 12.25 10*3/uL High 4.00-10.60 [facility] Comment on above: Order Comment: , Henry ws (X-RAY, CHEST): Radiologic Protocol , Views (X-RAY, CHEST): Radiologic Protocol , , , Ordering Provider Aliyah IZAGUIRRE MD , Performed By: #### 5 0608 ####[facility] [place] [address], [facility] POC GLUCOSE LABon 12-30-2018 Glucose [Mass/Vol] 115 mg/dL High 70-100 [facility] Comment on above: Performed By: #### 3 1595 #### [facility] [address] [place] [address], [facility] Glucose [Mass/Vol] 147 mg/dL High 70-100 [facility] Comment on above: Performed By: #### 8 5499 ####[facility] [facility] [address], [facility] Glucose [Mass/Vol] 131 mg/dL High 70-100 [facility] Comment on above: Performed By: #### 8 5499 ####[facility] [facility] [address], [facility] Glucose [Mass/Vol] 170 mg/dL High 70-100 [facility] Comment on above: Performed By: #### 8 5499 ####[facility] [place] [address], [facility] PORTABLE CHEST 1 VIEWon 12-11 PORTABLE CHEST 1 VIEW [facility] Department of Radiology [address] [place] [address] ======== Patient Name: CLAU KEEN : 1965 Sex: M Age: Race: White Pt. Location: [id number] Patient Status: I Ordered Date: 12/30/2018 3:10:00 PM Completed Date: 12/30/2018 03:34 PM Requesting Provider: AYSE BOWMAN Attending Provider: AURORA IZAGUIRRE Report Copy To: Signs & Symptoms: Post Chest Tube Removal History: See Comments Comments: Post Chest Tube Removal Exam: PORTABLE CHEST 1 VIEW ======== PORTABLE CHEST 1 VIEW 12/30/2018 3:34 PM EDT SIGNS AND SYMPTOMS: Post Chest Tube Removal TECHNOLOGIST COMMENTS: post chest tube removal. QUESTION FOR THE RADIOLOGIST: Post Chest Tube Removal PROTOCOL: AP(PA) view was obtained. COMPARISON: Prior study from earlier on the same day. FINDINGS: Interval removal of the left-sided chest tube and 2 mediastinal drains since prior exam with left lower lobe platelike atelectasis seen. Other silhouette is mildly enlarged and aorta is tortuous similar to prior study. Sternotomy wires appear intact and unchanged. No focal consolidation, effusion or pneumothorax. Soft tissue anchors are again seen over the glenoid cavity on the right side from prior capsular repair rounded calcific density in the right upper quadrant similar to prior exam. IMPRESSION: Interval removal of mediastinal drains and left chest tube with no residual pneumothorax. Cardiomegaly status post CABG. Electronically signed by:Jacob Son. Transcribed by: [email or web address], User Resident: Electronically Signed by: JACOB SON @ 12/30/2018 03:57 PM Normal [facility] Comment on above: Order Comment: , Henry ws (X-RAY, CHEST): Radiologic Protocol , Views (X-RAY, CHEST): Radiologic Protocol , , , Ordering Provider - AURORA IZAGUIRRE MD , PORTABLE CHEST 1 VIEW [facility] Department of Radiology [address] [place] [id number] ======== Patient Name: CLAU KEEN : 1965 Sex: M Age: Race: White Pt. Location: [id number] Patient Status: I Ordered Date: 12/30/2018 6:40:00 AM Completed Date: 12/30/2018 07:06 AM Requesting Provider: AYSE BOWMAN Attending Provider: AURORA IZAGUIRRE Report Copy To: Signs & Symptoms: Post OP History: See Comments Comments: R/O Pneumothorax Exam: PORTABLE CHEST 1 VIEW ======== PORTABLE CHEST 1 VIEW 12/30/2018 7:06 AM EDT SIGNS AND SYMPTOMS: Post OP TECHNOLOGIST COMMENTS: Post op CABG image taken on expiration checking for pneumothorax QUESTION FOR THE RADIOLOGIST: R/O Pneumothorax PROTOCOL: AP(PA) view was obtained. COMPARISON: Prior study from the day before. FINDINGS: Frontal view of the chest revealed interval removal of ETT and NGT since prior study. Mediastinal drains and left chest drain appear unchanged. There is low lung volumes and crowding of the lung markings. Sternotomy wires appear intact and unchanged. Metallic clips are seen over the right neck base similar to prior study. There has been interval removal of the right IJ Beyer-Stan catheter but the sheath remains in place. Soft tissue anchors are again visualized over the right glenoid cavity. IMPRESSION: Interval removal of support tubes including ETT, NGT and right IJ Beyer-Stan catheter but no change in other mediastinal drains and left chest drain. No evidence of pneumothorax. Electronically signed by:Jacob Son. Transcribed by: [email or web address], User Resident: Electronically Signed by: JACOB SON @ 12/30/2018 07:46 AM Normal [facility] Comment on above: Order Comment: , Vie ws (X-RAY, CHEST): Radiologic Protocol , Views (X-RAY, CHEST): Radiologic Protocol , , , Ordering Provider - AURORA IZAGUIRRE MD , APTTon 12-29-2018 aPTT Coag (Bld) [Time] 30.9 s Normal 25.0-35.0 [facility] Comment on above: Order Comment: post op day 1No: Do not add to previous draw Result Comment: ALL RESULTS MUST BE INTERPRETED WITH RESPECT TO BLOOD DRAWING ARTIFACT OR DILUTION ERROR OF ANTICOAGULANT AT THE TIME OF SAMPLING. THE APTT SHOULD NOT BE USED TO MONITOR UNFRACTIONATED HEPARIN THERAPY, THIS LABORATORY NO LONGER HAS AN ESTABLISHED THERAPEUTIC RANGE BASED ON THE APTT. IT IS RECOMMENDED THAT THE UFH - HEPARIN ASSAY (ANTI-XA ACTIVITY) BE USED FOR THIS PURPOSE. Performed By: #### 9 0150 #### [facility] [address] [facility]. [address] ARTERIAL BLOOD GAS WITH ICAo n 12-29-2018 BASE EXCESS -2 mmol/L Normal -2-3 [facility] Comment on above: Performed By: #### 9 0150 #### [facility] [address] DELIVERY SYSTEMS MV Normal [facility] Comment on above: Performed By: #### 9 0150 #### [facility] [address] [facility]. [address] FIO2 40 % Normal [facility] Comment on above: Performed By: #### 9 0150 #### [facility] [address] [facility]. [address] HCO3 (Bld) [Moles/Vol] 22 mmol/L Normal 21-28 [facility] Comment on above: Performed By: #### 9 0150 #### [facility] [address] [facility]. [address] IONIZED CALCIUM 1.08 mmol/L Low 1.13-1.32 [facility] Comment on above: Performed By: #### 9 0150 #### [facility] [address] [facility]. [address] MIN VOLUME 7.1 Normal [facility] Comment on above: Performed By: #### 9 0150 #### [facility] [address] [facility]. [address] MODALITY SPONT Normal [facility] Comment on above: Performed By: #### 9 0150 #### [facility] [address] [place] [address], [facility] Oxygen (Bld) [Partial pressure] 165 mm[Hg] Critically high 83-108 [facility] Comment on above: Performed By: #### 9 0150 #### [facility] [address] [place] [address], [facility] Oxygen saturation in Blood 95.6 % Normal 94.0-97.0 [facility] Comment on above: Performed By: #### 9 0150 #### [facility] [address] [facility] [place] [address], [facility] PCO2 34 mmHg Low 35-45 [facility] Comment on above: Performed By: #### 9 0150 #### [facility] [address] [place] [address], [facility] PEEP 5.0 CMH20 Normal [facility] Comment on above: Performed By: #### 9 0150 #### [facility] [address] [place] [address], [facility] pH (Bld) 7.42 [pH] Normal 7.35-7.45 [facility] Comment on above: Performed By: #### 9 0150 #### [facility] [address] [place] [address], [facility] PRESSURE SUPPORT 8 Normal [facility] Comment on above: Performed By: #### 9 0150 #### [facility] [address] [place] [address], [facility] BASE EXCESS -2 mmol/L Normal -2-3 [facility] Comment on above: Performed By: #### 6 2586 #### [facility] [address] [place] [address], [facility] DELIVERY SYSTEMS MV Normal [facility] Comment on above: Performed By: #### 6 2586 #### [facility] [address] [place] [address], [place] FIO2 40 % Normal [facility] Comment on above: Performed By: #### 6 2586 #### [facility] [address] [place] [address], [place] HCO3 (Bld) [Moles/Vol] 21 mmol/L Normal 21-28 [facility] Comment on above: Performed By: #### 6 2586 #### [facility] [address] [place] [place] [address], [place] IONIZED CALCIUM 1.08 mmol/L Low 1.13-1.32 [facility] Comment on above: Performed By: #### 6 2586 #### [facility] [address] [place] [address], [place] MIN VOLUME 8.4 Normal [facility] Comment on above: Performed By: #### 6 2586 #### [facility] [address] [place] [address], [place] MODALITY SIMV Normal [facility] Comment on above: Performed By: #### 6 2586 #### [facility] [address] [place] [address], [place] Oxygen (Bld) [Partial pressure] 169 mm[Hg] Critically high 83-108 [facility] Comment on above: Performed By: #### 6 2586 #### [facility] [address] [place] [address], [place] Oxygen saturation in Blood 95.3 % Normal 94.0-97.0 [facility] Comment on above: Performed By: #### 6 2586 #### [facility] [address] [place] [address], [place] PCO2 31 mmHg Low 35-45 [facility] Comment on above: Performed By: #### 6 2586 #### [facility] [address] [place] [address], [facility] PEEP 5.0 CMH20 Normal [facility] Comment on above: Performed By: #### 6 2586 #### [facility] [address] [place] [address], [place] pH (Bld) 7.44 [pH] Normal 7.35-7.45 [facility] Comment on above: Performed By: #### 6 2586 #### [facility] [address] [place] [address], [facility] PRESSURE SUPPORT 5 Normal [facility] Comment on above: Performed By: #### 6 2586 #### [facility] [address] [place] [address], [facility] TIDAL VOLUME (VT) CC 500 cc Normal [facility] Comment on above: Performed By: #### 6 2586 #### [facility] [address] [place] [address], [facility] BASE EXCESS -2 mmol/L Normal -2-3 [facility] Comment on above: Performed By: #### 6 2586 #### [facility] [address] [place] [address], [facility] DELIVERY SYSTEMS MV Normal [facility] Comment on above: Performed By: #### 6 2586 #### [facility] [address] [place] [address], [place] FIO2 40 % Normal [facility] Comment on above: Performed By: #### 6 2586 #### [facility] [address] [place] [address], [facility] HCO3 (Bld) [Moles/Vol] 22 mmol/L Normal 21-28 [facility] Comment on above: Performed By: #### 6 2586 #### [facility] [address] [place] [address], [place] IONIZED CALCIUM 1.07 mmol/L Low 1.13-1.32 [facility] Comment on above: Performed By: #### 6 2586 #### [facility] [address] [place] [address], [facility] MIN VOLUME 6.1 Normal [facility] Comment on above: Performed By: #### 6 2586 #### [facility] [address] [place] [address], [facility] MODALITY simv Normal [facility] Comment on above: Performed By: #### 6 2586 #### [facility] [address] [place] [address], [facility] Oxygen (Bld) [Partial pressure] 173 mm[Hg] Critically high 83-108 [facility] Comment on above: Performed By: #### 6 2586 #### [facility] [address] Oxygen saturation in Blood 95.3 % Normal 94.0-97.0 [facility] Comment on above: Performed By: #### 6 2586 #### [facility] [address] [facility] [place] [address], [facility] PCO2 35 mmHg Normal 35-45 [facility] Comment on above: Performed By: #### 6 2586 #### [facility] [address] [place] [address], [facility] PEEP 5.0 CMH20 Normal [facility] Comment on above: Performed By: #### 6 2586 #### [facility] [address] [place] [address], [facility] pH (Bld) 7.41 [pH] Normal 7.35-7.45 [facility] Comment on above: Performed By: #### 6 2586 #### [facility] [address] [place] [address], [facility] PRESSURE SUPPORT 5 Normal [facility] Comment on above: Performed By: #### 6 2586 #### [facility] [address] [place] [address], [facility] TIDAL VOLUME (VT) CC 500 cc Normal [facility] Comment on above: Performed By: #### 6 2586 #### [facility] [address] [place] [address], [facility] BASE EXCESS -3 mmol/L Low -2-3 [facility] Comment on above: Performed By: #### 6 2586 #### [facility] [address] [place] [address], [facility] DELIVERY SYSTEMS MV Normal [facility] Comment on above: Performed By: #### 6 2586 #### [facility] [address] [place] [address], [facility] FIO2 40 % Normal [facility] Comment on above: Performed By: #### 6 2586 #### [facility] [address] [place] [address], [facility] HCO3 (Bld) [Moles/Vol] 25 mmol/L Normal 21-28 [facility] Comment on above: Performed By: #### 6 2586 #### [facility] [address] [place] [address], [facility] IONIZED CALCIUM 1.14 mmol/L Normal 1.13-1.32 [facility] Comment on above: Performed By: #### 6 2586 #### [facility] [address] [place] [address], [place] MIN VOLUME 6.3 Normal [facility] Comment on above: Performed By: #### 6 2586 #### [facility] [address] [place] [address], [place] MODALITY SPONT Normal [facility] Comment on above: Performed By: #### 6 2586 #### [facility] [address] [place] [address], [place] Oxygen (Bld) [Partial pressure] 144 mm[Hg] Critically high 83-108 [facility] Comment on above: Performed By: #### 6 2586 #### [facility] [address] [place] [address], [place] Oxygen saturation in Blood 94.4 % Normal 94.0-97.0 [facility] Comment on above: Performed By: #### 6 2586 #### [facility] [address] [place] [address], [place] PCO2 54 mmHg High 35-45 [facility] Comment on above: Performed By: #### 6 2586 #### [facility] [address] [place] [address], [place] PEEP 5.0 CMH20 Normal [facility] Comment on above: Performed By: #### 6 2586 #### [facility] [address] [place] [address], [place] pH (Bld) 7.27 [pH] Low 7.35-7.45 [facility] Comment on above: Performed By: #### 6 2586 #### [facility] [address] [place] [address], [place] PRESSURE SUPPORT 8 Normal [facility] Comment on above: Performed By: #### 6 2586 #### [facility] [address] [place] [address], [place] BASIC METABOLIC PANELon 08-2 0-2018 Calcium [Mass/Vol] 7.8 mg/dL Low 8.6-10.3 [facility] Comment on above: Order Comment: post op day 1No: Do not add to previous draw Performed By: #### 9 0150 #### [facility] [address] [place] [address], [place] Chloride [Moles/Vol] 113 mmol/L High 98-107 [facility] Comment on above: Order Comment: post op day 1No: Do not add to previous draw Performed By: #### 9 0150 #### [facility] [address] [place] [address], [place] CO2 [Moles/Vol] 24 mmol/L Normal 21-31 [facility] Comment on above: Order Comment: post op day 1No: Do not add to previous draw Performed By: #### 9 0150 #### [facility] [address] [place] [address], [place] Creatinine [Mass/Vol] 0.88 mg/dL Normal 0.70-1.30 [facility] Comment on above: Order Comment: post op day 1No: Do not add to previous draw Performed By: #### 9 0150 #### [facility] [address] [place] [address], [place] GFR/1.73 sq M predicted among blacks MDRD (S/P/Bld) [Vol rate/Area] mL/min/{1.73_m2} Normal >60 [facility] Comment on above: Order Comment: post op day 1No: Do not add to previous draw Performed By: #### 9 0150 #### [facility] [address] [place] [address], [place] GFR/1.73 sq M predicted among non-blacks MDRD (S/P/Bld) [Vol rate/Area] mL/min/{1.73_m2} Normal >60 [facility] Comment on above: Order Comment: post op day 1No: Do not add to previous draw Performed By: #### 9 0150 #### [facility] [address] [place] [address], [place] Potassium [Moles/Vol] 4.1 mmol/L Normal 3.5-5.1 [facility] Comment on above: Order Comment: post op day 1No: Do not add to previous draw Performed By: #### 9 0150 #### [facility] [address] [place] [address], [place] Sodium [Moles/Vol] 141 mmol/L Normal 136-145 [facility] Comment on above: Order Comment: post op day 1No: Do not add to previous draw Performed By: #### 9 0150 #### [facility] [address] [place] [address], [place] Urea nitrogen [Mass/Vol] 8 mg/dL Normal 7-25 [facility] Comment on above: Order Comment: post op day 1No: Do not add to previous draw Performed By: #### 9 0150 #### [facility] [address] [place] [address], [place] Calcium [Mass/Vol] 8.2 mg/dL Low 8.6-10.3 [facility] Comment on above: Order Comment: No: D o not add to previous draw Performed By: #### 6 2586 #### [facility] [address] [place] [address], [place] Chloride [Moles/Vol] 111 mmol/L High 98-107 [facility] Comment on above: Order Comment: No: D o not add to previous draw Performed By: #### 6 2586 #### [facility] [address] [place] [address], [place] Creatinine [Mass/Vol] 0.81 mg/dL Normal 0.70-1.30 [facility] Comment on above: Order Comment: No: D o not add to previous draw Performed By: #### 6 2586 #### [facility] [address] [place] [address], [place] Glucose [Mass/Vol] 149 mg/dL High 70-100 [facility] Comment on above: Order Comment: No: D o not add to previous draw Performed By: #### 6 2586 #### [facility] [address] [place] [address], [facility] CARDIAC MAGNESIUM BLOODon Magnesium [Mass/Vol] 2.5 mg/dL Normal 1.9-2.7 [facility] Comment on above: Performed By: #### 6 2586 #### [facility] [address] [place] [address], [facility] CBC COMPLETE BLOOD COUNTon 0 12-29-2018 Erythrocyte distribution width (RBC) [Ratio] 13.0 % Normal 11.5-15.0 [facility] Comment on above: Order Comment: post op day 1No: Do not add to previous draw Performed By: #### 6 2586 #### [facility] [address] [facility] [place] [address], [facility] Hematocrit (Bld) [Volume fraction] 32.3 % Low 39.0-50.0 [facility] Comment on above: Order Comment: post op day 1No: Do not add to previous draw Performed By: #### 6 2586 #### [facility] [address] [facility] [place] [address], [facility] Hemoglobin (Bld) [Mass/Vol] 11.0 g/dL Low 13.0-17.0 [facility] Comment on above: Order Comment: post op day 1No: Do not add to previous draw Performed By: #### 6 2586 #### [facility] [address] [place] [address], [facility] MCH (RBC) [Entitic mass] 32.1 pg Normal 27.0-33.0 [facility] Comment on above: Order Comment: post op day 1No: Do not add to previous draw Performed By: #### 6 2586 #### [facility] [address] [place] [address], [facility] MCHC (RBC) [Mass/Vol] 34.1 g/dL Normal 32.0-35.0 [facility] Comment on above: Order Comment: post op day 1No: Do not add to previous draw Performed By: #### 6 2586 #### [facility] [address] [place] [address], [place] MCV (RBC) [Entitic vol] 94.2 fL Normal 82.0-98.0 [facility] Comment on above: Order Comment: post op day 1No: Do not add to previous draw Performed By: #### 6 2586 #### [facility] [address] [place] [address], [place] Nucleated RBC/100 WBC (Bld) [Ratio] 0 % Normal 0-0 [facility] Comment on above: Order Comment: post op day 1No: Do not add to previous draw Performed By: #### 6 2586 #### [facility] [address] [place] [address], [place] PLAT CNT 136 10*3/uL Low 150-400 [facility] Comment on above: Order Comment: post op day 1No: Do not add to previous draw Performed By: #### 6 2586 #### [facility] [address] [place] [address], [place] RBC (Bld) [#/Vol] 3.43 10*6/uL Low 4.20-5.70 [facility] Comment on above: Order Comment: post op day 1No: Do not add to previous draw Performed By: #### 6 2586 #### [facility] [address] [place] [address], [place] WBC (Bld) [#/Vol] 12.54 10*3/uL High 4.00-10.60 [facility] Comment on above: Order Comment: post op day 1No: Do not add to previous draw Performed By: #### 6 2586 #### [facility] [address] [place] [address], [place] Erythrocyte distribution width (RBC) [Ratio] 12.9 % Normal 11.5-15.0 [facility] Comment on above: Order Comment: No: D o not add to previous draw Performed By: #### 0 0071 #### [facility] [address] [place] [address], [facility] Hematocrit (Bld) [Volume fraction] 37.2 % Low 39.0-50.0 [facility] Comment on above: Order Comment: No: D o not add to previous draw Performed By: #### 0 0071 #### [facility] [address] [place] [id number], [facility] Hemoglobin (Bld) [Mass/Vol] 12.7 g/dL Low 13.0-17.0 [facility] Comment on above: Order Comment: No: D o not add to previous draw Performed By: #### 0 0071 #### [facility] [address] [place] [address], [facility] MCH (RBC) [Entitic mass] 32.8 pg Normal 27.0-33.0 [facility] Comment on above: Order Comment: No: D o not add to previous draw Performed By: #### 0 0071 #### [facility] [address] [place] [address], [facility] MCHC (RBC) [Mass/Vol] 34.1 g/dL Normal 32.0-35.0 [facility] Comment on above: Order Comment: No: D o not add to previous draw Performed By: #### 0 0071 #### [facility] [address] [place] [address], [facility] MCV (RBC) [Entitic vol] 96.1 fL Normal 82.0-98.0 [facility] Comment on above: Order Comment: No: D o not add to previous draw Performed By: #### 0 0071 #### [facility] [address] [place] [id number], [facility] PLAT CNT 148 10*3/uL Low 150-400 [facility] Comment on above: Order Comment: No: D o not add to previous draw Performed By: #### 0 0071 #### [facility] [address] [place] [address], [facility] RBC (Bld) [#/Vol] 3.87 10*6/uL Low 4.20-5.70 [facility] Comment on above: Order Comment: No: D o not add to previous draw Performed By: #### 0 0071 #### [facility] [address] [place] [address], [facility] WBC (Bld) [#/Vol] 15.12 10*3/uL High 4.00-10.60 [facility] Comment on above: Order Comment: No: D o not add to previous draw Performed By: #### 0 0071 #### [facility] [address] [place] [address], [facility] COOXIMETRYon 12-29-2018 COHB 2 % Normal [facility] Comment on above: Performed By: #### 9 0150 #### [facility] [address] [place] [address], [facility] METHB 1 % Normal [facility] Comment on above: Performed By: #### 9 0150 #### [facility] [address] [place] [address], [facility] Oxygen saturation in Blood 69.6 % Normal 65.0-75.0 [facility] Comment on above: Performed By: #### 9 0150 #### [facility] [address] [place] [address], [facility] THB 11.2 g/dL Normal [facility] Comment on above: Performed By: #### 9 0150 #### [facility] [address] [place] [address], [facility] MAGNESIUM BLOODon 12-29-2018 Magnesium [Mass/Vol] 2.3 mg/dL Normal 1.9-2.7 [facility] Comment on above: Order Comment: post op day 1No: Do not add to previous draw Performed By: #### 6 2586 #### [facility] [address] Operative Reporton 9 Operative Report MR#: [id number] I [facility] Pt. Name: Clau Keen Room #: 3CD [id number] Discharge Date: Birthdate: 1965 OPERATIVE REPORT DATE OF SURGERY: 12/28/2018 SURGEON: Aurora Izaguirre MD PREOPERATIVE DIAGNOSIS: Coronary artery disease. POSTOPERATIVE DIAGNOSIS: Coronary artery disease. OPERATION: 1. Coronary artery bypass grafting x3, VILLAR to LAD, saphenous vein graft to posterior descending artery and posterolateral ventricular branch. 2. Endoscopic vein harvesting of the left greater saphenous vein. 3. Independent interpretation of transesophageal echocardiogram. BUZZSAW OPERATOR: Jose Alberto. ANESTHESIA: General with endotracheal intubation. ANESTHESIOLOGIST: Dr. Houser. CARDIOPULMONARY BYPASS TIME: 70 minutes. CROSSCLAMP TIME: 45 minutes. INDICATIONS: This is a 53-year-old male with a longstanding smoking history and 3-vessel coronary artery disease. He was taken to the operating room for the above procedures. He had double-vessel coronary artery disease with a dominant right coronary artery. PROCEDURE IN DETAIL: The patient was brought to the operating room and prepped and draped in the routine fashion. VANESSA was done, it showed good ventricular function. No significant valvular lesions were noted. Left great saphenous vein was harvested endoscopically. Chest was entered through median sternotomy and left internal mammary artery was harvested under direct vision using pedicle technique. The patient was heparinized and the internal mammary artery was divided and prepared for later use. Pericardium was opened and ascending aorta and right atrium were cannulated in the usual fashion. Antegrade cardioplegic catheter was placed in the ascending aorta. Cardiopulmonary bypass was initiated and cross-clamp was applied. Cold blood antegrade cardioplegia was given every 15-20 minutes or whenever myocardial temperature was 20 degrees. The inferolateral surface of the heart was exposed and the posterolateral ventricular branch was identified. This was 1.5 mm in size. The vein graft was anastomosed in end-to-side fashion using 7-0 Prolene running stitch. Upon completion of this anastomosis, there was excellent flow through the graft. The same vein graft was brought up next to the posterior descending artery and a [id number]-[id number] anastomosis was constructed using 7-0 Prolene running stitch. Upon completion of this anastomosis, the flow was checked and found to be excellent in both the segments of the vein graft. The vein graft anastomosed to the ascending aorta using 6-0 Prolene running stitch. Finally, attention was focused to the LAD, which was exposed in its midportion and VILLAR was anastomosed in end-to-side fashion using 8-0 Prolene running stitch. Upon completion, there was anastomosed and the suture was tied down and the bulldog clamp was released. Blood flow was resumed to the mammary graft. The patient was placed in a Trendelenburg position. The cross-clamp was released. Aortic root vent was turned on. Ventricular and atrial pacing wires were placed. The patient regained sinus rhythm and ventilation was begun. After adequate de-airing had been done, the aortic root vent was removed and the patient was weaned off cardiopulmonary bypass. Transit time flow measurements were done showed excellent pulsatility index of 1.7 to 2 in all the grafts. Protamine was given. Venous cannula was removed. After completion of protamine administration, aortic cannula was also removed. Hemostasis was secured. Two chest tubes were placed immediately in the mediastinum, one in the left chest. Chest was closed with sternal cables, #1 Vicryl, 2-0 Vicryl, 4-0 Monocryl stitches. The patient tolerated the procedure well, was taken to the ICU in a stable, but critical condition. Electronically Signed by: Aurora Izaguirre MD 12/30/2018 09:03 A Aurora Izaguirre MD Date Dict: 12/28/2018/07:20 P/Aurora Izaguirre MD Date Trans: 12/29/2018 03:26 A/rafa LANDRY_[id number] Normal [facility] PERFUSION BLOOD PANELon 12-11 BASE EXCESS -4.0 mmol/L Low -2.0-3.0 [facility] Comment on above: Performed By: #### 9 0150 #### [facility] [address] [place] [address], [place] Glucose [Mass/Vol] 134 mg/dL High 70-105 [facility] Comment on above: Performed By: #### 9 0150 #### [facility] [address] [place] [address], [place] Hematocrit (Bld) [Volume fraction] 35 % Low 38-51 [facility] Comment on above: Performed By: #### 9 0150 #### [facility] [address] [place] [address], [place] Hemoglobin (Bld) [Mass/Vol] 11.9 g/dL Low 12.0-17.0 [facility] Comment on above: Performed By: #### 9 0150 #### [facility] [address] [place] [address], [facility] IONIZED CALCIUM 1.15 mmol/L Normal 1.12-1.32 [facility] Comment on above: Performed By: #### 9 0150 #### [facility] [address] [place] [address], [place] Oxygen (Bld) [Partial pressure] 158.0 mm[Hg] High 80.0-105.0 [facility] Comment on above: Performed By: #### 9 0150 #### [facility] [address] [place] [address], [facility] PCO2 47.4 mmHg High 35.0-45.0 [facility] Comment on above: Performed By: #### 9 0150 #### [facility] [address] [place] [address], [place] pH (Bld) 7.29 [pH] Low 7.35-7.45 [facility] Comment on above: Performed By: #### 9 0150 #### [facility] [address] [place] [address], [place] Potassium [Moles/Vol] 3.8 mmol/L Normal 3.5-4.9 [facility] Comment on above: Performed By: #### 9 0150 #### [facility] [address] [place] [address], [place] Sodium [Moles/Vol] 144 mmol/L Normal 138-146 [facility] Comment on above: Performed By: #### 9 0150 #### [facility] [address] [place] [address], [place] POC GLUCOSE LABon 12-29-2018 Glucose [Mass/Vol] 151 mg/dL High 70-100 [facility] Comment on above: Performed By: #### 8 5499 ####[facility] [place] [address], [place] Glucose [Mass/Vol] 119 mg/dL High 70-100 [facility] Comment on above: Performed By: #### 8 5499 ####[facility] [place] [address], [place] Glucose [Mass/Vol] 105 mg/dL High 70-100 [facility] Comment on above: Performed By: #### 9 0150 #### [facility] [address] [place] [address], [place] Glucose [Mass/Vol] 129 mg/dL High 70-100 [facility] Comment on above: Performed By: #### 9 0150 #### [facility] [address] [place] [address], [place] Order Comment: post op day 1No: Do not add to previous draw Glucose [Mass/Vol] 133 mg/dL High 70-100 [facility] Comment on above: Performed By: #### 6 2586 #### [facility] [address] [place] [address], [place] Glucose [Mass/Vol] 138 mg/dL High 70-100 [facility] Comment on above: Performed By: #### 6 2586 #### [facility] [address] [facility] [address], [facility] Glucose [Mass/Vol] 168 mg/dL High 70-100 [facility] Comment on above: Performed By: #### 0 0071 #### [facility] [address] [facility] [address], [facility] Glucose [Mass/Vol] 145 mg/dL High 70-100 [facility] Comment on above: Performed By: #### 0 0071 #### [facility] [address] [place] [address], [facility] PORTABLE CHEST 1 VIEWon 12-11 PORTABLE CHEST 1 VIEW [facility] Department of Radiology [address] [place] [address] ======== Patient Name: CLAU KEEN : 1965 Sex: M Age: Race: White Pt. Location: OUTP Patient Status: I Ordered Date: 12/29/2018 7:00:00 AM Completed Date: 12/29/2018 06:39 AM Requesting Provider: AYSE BOWMAN Attending Provider: AURORA IZAGUIRRE Report Copy To: Signs & Symptoms: Post CABG History: See Comments Comments: Check Chest Tube Position Exam: PORTABLE CHEST 1 VIEW ======== PORTABLE CHEST 1 VIEW 12/29/2018 6:39 AM EDT SIGNS AND SYMPTOMS: Post CABG TECHNOLOGIST COMMENTS: Post CABG 12/28/18. Check chest tube position per ordering physician. QUESTION FOR THE RADIOLOGIST: Check Chest Tube Position PROTOCOL: AP(PA) view was obtained. COMPARISON: Chest x-ray 12/28/2018. FINDINGS: Trachea is midline. Mediastinum is unremarkable. Unchanged cardiomegaly. No effusion or pneumothorax. No airspace opacity. No acute osseous abnormality. No subdiaphragmatic free air. Stable position of left and mediastinal chest tubes. Right IJ Beyer-Stan and NG tube are in satisfactory position. ET tube is approximately 2.2 cm above the selma and can be retracted 2 cm. Sternotomy wires are intact. Right glenoid bone anchors are visualized. Sternotomy wires appear unchanged. IMPRESSION: Unchanged cardiomegaly. No airspace opacity. ET tube can be retracted approximately 2 cm. The remaining support lines and tubes are in satisfactory position. Approved by:Aurora Houser on 12/29/2018 11:23 AM EDT. I, Jacob Son, have reviewed the images and report and concur with these findings. Electronically signed by:Jacob Son. Transcribed by: [email or web address], User Resident: AURORA HOUSER Electronically Signed by: JACOB SON @ 12/29/2018 04:01 PM I personally read this/these film(s) with this resident Normal [facility] Comment on above: Order Comment: Check Chest Tube Position PROTHROMBIN TIMEon 9 INR Coag (PPP) [Relative time] 1.19 {INR} High 0.91-1.16 [facility] Comment on above: Order Comment: post op day 1No: Do not add to previous draw Result Comment: ACCC P RECOMMENDED INR FOR WARFARIN THERAPY ------ ------- CONDITION INR PROPHYLAXIS OF VENOUS THROMBOSIS 2-3 (HIGH-RISK SURGERY) TREATMENT OF VENOUS THROMBOSIS 2-3 TREATMENT OF PULMONARY EMBOLISM 2-3 PREVENTION OF SYSTEMIC EMBOLISM: 2-3 ACUTE MYOCARDIAL INFARCTION TISSUE HEART VALVES VALVULAR HEART DISEASE ATRIAL FIBRILLATION RECURRENT SYSTEMIC EMBOLISM MECHANICAL HEART VALVE 2.5-3.5 FROM: ORAL ANTICOAGULANTS. MECHANISM OF ACTION, CLINICAL EFFECTIVENESS, AND OPTIMAL THERAPEUTIC RANGE. CHEST 1995;108:231S-246S. Performed By: #### 9 0150 #### [facility] [address] [facility] [address], [facility] PT Coag (PPP) [Time] 15.2 s High 12.3-14.8 [facility] Comment on above: Order Comment: post op day 1No: Do not add to previous draw Result Comment: ALL RESULTS MUST BE INTERPRETED WITH RESPECT TO BLOOD DRAWING ARTIFACT OR DILUTION ERROR OF ANTICOAGULANT AT THE TIME OF SAMPLING. Performed By: #### 9 0150 #### [facility] [address] [place] [address], [facility] INR Coag (PPP) [Relative time] 1.19 {INR} High 0.91-1.16 [facility] Comment on above: Order Comment: No: D o not add to previous draw Result Comment: ACCC P RECOMMENDED INR FOR WARFARIN THERAPY ------ ------- CONDITION INR PROPHYLAXIS OF VENOUS THROMBOSIS 2-3 (HIGH-RISK SURGERY) TREATMENT OF VENOUS THROMBOSIS 2-3 TREATMENT OF PULMONARY EMBOLISM 2-3 PREVENTION OF SYSTEMIC EMBOLISM: 2-3 ACUTE MYOCARDIAL INFARCTION TISSUE HEART VALVES VALVULAR HEART DISEASE ATRIAL FIBRILLATION RECURRENT SYSTEMIC EMBOLISM MECHANICAL HEART VALVE 2.5-3.5 FROM: ORAL ANTICOAGULANTS. MECHANISM OF ACTION, CLINICAL EFFECTIVENESS, AND OPTIMAL THERAPEUTIC RANGE. CHEST 1995;108:231S-246S. Performed By: #### 6 2586 #### [facility] [address] [place] [address], [place] PT Coag (PPP) [Time] 15.2 s High 12.3-14.8 [facility] Comment on above: Order Comment: No: D o not add to previous draw Result Comment: ALL RESULTS MUST BE INTERPRETED WITH RESPECT TO BLOOD DRAWING ARTIFACT OR DILUTION ERROR OF ANTICOAGULANT AT THE TIME OF SAMPLING. Performed By: #### 6 2586 #### [facility] [address] [place] [address], [place] ACTIVATED CLOTTING TIMEon ACTIVATED CLOTTING TIME 126 sec Normal 82-152 [facility] Comment on above: Performed By: #### 5 7307, [id number] #### [facility] [address] [place] [address], [place] ACTIVATED CLOTTING TIME 571 sec High 82-152 [facility] Comment on above: Performed By: #### 5 7307, [id number] #### [facility] [address] [place] [address], [place] ACTIVATED CLOTTING TIME 599 sec High 82-152 [facility] Comment on above: Performed By: #### 5 7307, [id number] #### [facility] [address] [place] [address], [place] ACTIVATED CLOTTING TIME 759 sec High 82-152 [facility] Comment on above: Performed By: #### 5 7307, 18125 #### [facility] [address] [place] [address], [place] ACTIVATED CLOTTING TIME 655 sec High 82-152 [facility] Comment on above: Performed By: #### 5 7307, [id number] #### [facility] [address] ACTIVATED CLOTTING TIME 126 sec Normal 82-152 [facility] Comment on above: Performed By: #### 5 7307, [id number] #### [facility] [address] [place] [address], [facility] APTTon 12-28-2018 aPTT Coag (Bld) [Time] 31.9 s Normal 25.0-35.0 [facility] Comment on above: Result Comment: ALL RESULTS MUST BE INTERPRETED WITH RESPECT TO BLOOD DRAWING ARTIFACT OR DILUTION ERROR OF ANTICOAGULANT AT THE TIME OF SAMPLING. THE APTT SHOULD NOT BE USED TO MONITOR UNFRACTIONATED HEPARIN THERAPY, THIS LABORATORY NO LONGER HAS AN ESTABLISHED THERAPEUTIC RANGE BASED ON THE APTT. IT IS RECOMMENDED THAT THE [facility] - HEPARIN ASSAY (ANTI-XA ACTIVITY) BE USED FOR THIS PURPOSE. Performed By: #### 0 0071 #### [facility] [address] ARTERIAL BLOOD GAS WITH ICAo n 12-28-2018 BASE EXCESS -5 mmol/L Low -2-3 [facility] Comment on above: Performed By: #### 0 0071 #### [facility] [address] DELIVERY SYSTEMS MV Normal [facility] Comment on above: Performed By: #### 0 0071 #### [facility] [address] [place] [address], [facility] FIO2 40 % Normal [facility] Comment on above: Performed By: #### 0 0071 #### [facility] [address] [place] [address], [facility] HCO3 (Bld) [Moles/Vol] 22 mmol/L Normal 21-28 [facility] Comment on above: Performed By: #### 0 0071 #### [facility] [address] [place] [address], [facility] IONIZED CALCIUM 1.14 mmol/L Normal 1.13-1.32 [facility] Comment on above: Performed By: #### 0 0071 #### [facility] [address] [place] [address], [facility] MIN VOLUME 8.6 Normal [facility] Comment on above: Performed By: #### 0 0071 #### [facility] [address] [place] [address], [facility] MODALITY SIMV Normal [facility] Comment on above: Performed By: #### 0 0071 #### [facility] [address] [place] [address], [facility] Oxygen (Bld) [Partial pressure] 108 mm[Hg] Normal 83-108 [facility] Comment on above: Performed By: #### 0 0071 #### [facility] [address] [facility] [place] [address], [facility] Oxygen saturation in Blood 94.1 % Normal 94.0-97.0 [facility] Comment on above: Performed By: #### 0 0071 #### [facility] [address] [facility] [place] [address], [facility] PCO2 46 mmHg High 35-45 [facility] Comment on above: Performed By: #### 0 0071 #### [facility] [address] [place] [address], [facility] PEEP 8.0 CMH20 Normal [facility] Comment on above: Performed By: #### 0 0071 #### [facility] [address] [place] [address], [facility] pH (Bld) 7.29 [pH] Low 7.35-7.45 [facility] Comment on above: Performed By: #### 0 0071 #### [facility] [address] [place] [address], [facility] PRESSURE SUPPORT 5 Normal [facility] Comment on above: Performed By: #### 0 0071 #### [facility] [address] [place] [address], [facility] TIDAL VOLUME (VT) CC 500 cc Normal [facility] Comment on above: Performed By: #### 0 0071 #### [facility] [address] [place] [address], [facility] BASE EXCESS -2 mmol/L Normal -2-3 [facility] Comment on above: Order Comment: on ar rival to CVU Performed By: #### 0 0071 #### [facility] [address] [place] [address], [facility] DELIVERY SYSTEMS MV Normal [facility] Comment on above: Order Comment: on ar rival to CVU Performed By: #### 0 0071 #### [facility] [address] [place] [address], [facility] FIO2 50 % Normal [facility] Comment on above: Order Comment: on ar rival to CVU Performed By: #### 0 0071 #### [facility] [address] [place] [address], [facility] HCO3 (Bld) [Moles/Vol] 23 mmol/L Normal 21-28 [facility] Comment on above: Order Comment: on ar rival to CVU Performed By: #### 0 0071 #### [facility] [address] [place] [address], [facility] IONIZED CALCIUM 1.19 mmol/L Normal 1.13-1.32 [facility] Comment on above: Order Comment: on ar rival to CVU Performed By: #### 0 0071 #### [facility] [address] [place] [address], [facility] MIN VOLUME 6.2 Normal [facility] Comment on above: Order Comment: on ar rival to CVU Performed By: #### 0 0071 #### [facility] [address] [place] [address], [facility] MODALITY AC Normal [facility] Comment on above: Order Comment: on ar rival to CVU Performed By: #### 0 0071 #### [facility] [address] [place] [address], [facility] Oxygen (Bld) [Partial pressure] 199 mm[Hg] Critically high 83-108 [facility] Comment on above: Order Comment: on ar rival to CVU Performed By: #### 0 0071 #### [facility] [address] [place] [address], [facility] Oxygen saturation in Blood 94.2 % Normal 94.0-97.0 [facility] Comment on above: Order Comment: on ar rival to CVU Performed By: #### 0 0071 #### [facility] [address] [place] [address], [facility] PCO2 38 mmHg Normal 35-45 [facility] Comment on above: Order Comment: on ar rival to CVU Performed By: #### 0 0071 #### [facility] [address] [place] [address], [facility] PEEP 8.0 CMH20 Normal [facility] Comment on above: Order Comment: on ar rival to CVU Performed By: #### 0 0071 #### [facility] [address] [place] [address], [facility] pH (Bld) 7.38 [pH] Normal 7.35-7.45 [facility] Comment on above: Order Comment: on ar rival to CVU Performed By: #### 0 0071 #### [facility] [address] [place] [address], [facility] TIDAL VOLUME (VT) CC 500 cc Normal [facility] Comment on above: Order Comment: on ar rival to CVU Performed By: #### 0 0071 #### [facility] [address] [place] [id number], [facility] BASIC METABOLIC PANELon 12-10 Calcium [Mass/Vol] 8.4 mg/dL Low 8.6-10.3 [facility] Comment on above: Performed By: #### 5 7307, 47525 #### [facility] [address] [place] [address], [place] Chloride [Moles/Vol] 110 mmol/L High 98-107 [facility] Comment on above: Performed By: #### 5 7307, 32814 #### [facility] [address] [place] [address], [facility] CO2 [Moles/Vol] 25 mmol/L Normal 21-31 [facility] Comment on above: Order Comment: No: D o not add to previous draw Performed By: #### 6 2586 #### [facility] [address] [place] [address], [facility] Performed By: #### 5 7307, 06820 #### [facility] [address] [place] [id number], [facility] Creatinine [Mass/Vol] 0.79 mg/dL Normal 0.70-1.30 [facility] Comment on above: Performed By: #### 5 7307, 80712 #### [facility] [address] [place] [id number], [facility] GFR/1.73 sq M predicted among blacks MDRD (S/P/Bld) [Vol rate/Area] mL/min/{1.73_m2} Normal >60 [facility] Comment on above: Order Comment: No: D o not add to previous draw Performed By: #### 6 5766 #### [facility] [address] [place] [address], [facility] Performed By: #### 5 7307, 98585 #### [facility] [address] [place] [address], [place] GFR/1.73 sq M predicted among non-blacks MDRD (S/P/Bld) [Vol rate/Area] mL/min/{1.73_m2} Normal >60 [facility] Comment on above: Order Comment: No: D o not add to previous draw Performed By: #### 6 2586 #### [facility] [address] [place] [address], [place] Performed By: #### 5 7307, 99082 #### [facility] [address] [place] [address], [place] Glucose [Mass/Vol] 110 mg/dL High 70-100 [facility] Comment on above: Performed By: #### 5 73, 64107 #### [facility] [address] [place] [address], [place] Potassium [Moles/Vol] 4.7 mmol/L Normal 3.5-5.1 [facility] Comment on above: Performed By: #### 5 7307, 91715 #### [facility] [address] [place] [address], [place] Sodium [Moles/Vol] 138 mmol/L Normal 136-145 [facility] Comment on above: Performed By: #### 5 7307, 95348 #### [facility] [address] [place] [address], [place] Urea nitrogen [Mass/Vol] 8 mg/dL Normal 7-25 [facility] Comment on above: Order Comment: No: D o not add to previous draw Performed By: #### 6 2586 #### [facility] [address] [place] [address], [place] Performed By: #### 5 7307, 44934 #### [facility] [address] [place] [address], [place] Potassium [Moles/Vol] 4.0 mmol/L Normal 3.5-4.9 [facility] Comment on above: Order Comment: No: D o not add to previous draw Performed By: #### 6 2586 #### [facility] [address] [place] [address], [facility] Performed By: #### 5 73, 55124 #### [facility] [address] [place] [id number], [facility] Sodium [Moles/Vol] 140 mmol/L Normal 138-146 [facility] Comment on above: Order Comment: No: D o not add to previous draw Performed By: #### 6 2586 #### [facility] [address] [place] [address], [facility] Performed By: #### 5 73, 84206 #### [facility] [address] CBC COMPLETE BLOOD COUNTon - Erythrocyte distribution width (RBC) [Ratio] 12.7 % Normal 11.5-15.0 [facility] Comment on above: Performed By: #### 5 Shahid, 69081 #### [facility] [address] [place] [address], [facility] Hematocrit (Bld) [Volume fraction] 32.3 % Low 39.0-50.0 [facility] Comment on above: Performed By: #### 5 7306, 21313 #### [facility] [address] [place] [address], [facility] Hemoglobin (Bld) [Mass/Vol] 11.1 g/dL Low 13.0-17.0 [facility] Comment on above: Performed By: #### 5 Shahid, 70806 #### [facility] [address] [place] [address], [facility] MCH (RBC) [Entitic mass] 32.7 pg Normal 27.0-33.0 [facility] Comment on above: Performed By: #### 5 Shahid, 59137 #### [facility] [address] [place] [address], [facility] MCHC (RBC) [Mass/Vol] 34.4 g/dL Normal 32.0-35.0 [facility] Comment on above: Performed By: #### 5 73, 62551 #### [facility] [address] [place] [id number], [facility] MCV (RBC) [Entitic vol] 95.3 fL Normal 82.0-98.0 [facility] Comment on above: Performed By: #### 5 7306, 39546 #### [facility] [address] [place] [id number], [facility] Nucleated RBC/100 WBC (Bld) [Ratio] 0 % Normal 0-0 [facility] Comment on above: Order Comment: No: D o not add to previous draw Performed By: #### 0 0071 #### [facility] [address] [place] [address], [facility] Performed By: #### 5 7306, 86338 #### [facility] [address] [place] [id number], [facility] PLAT CNT 118 10*3/uL Low 150-400 [facility] Comment on above: Performed By: #### 5 73, 78793 #### [facility] [address] [place] [id number], [facility] RBC (Bld) [#/Vol] 3.39 10*6/uL Low 4.20-5.70 [facility] Comment on above: Performed By: #### 5 73, 33355 #### [facility] [address] [place] [id number], [facility] WBC (Bld) [#/Vol] 11.13 10*3/uL High 4.00-10.60 [facility] Comment on above: Performed By: #### 5 7306, 84055 #### [facility] [address] COOXIMETRYon 12-28-2018 COHB 4 % Normal [facility] Comment on above: Performed By: #### 0 0071 #### [facility] [address] [facility]. [address] METHB 1 % Normal [facility] Comment on above: Performed By: #### 0 0071 #### [facility] [address] [facility] [address] Oxygen saturation in Blood 72.1 % Normal 65.0-75.0 [facility] Comment on above: Performed By: #### 0 0071 #### [facility] [address] THB 12.3 g/dL Normal [facility] Comment on above: Performed By: #### 0 0071 #### [facility] [address] [facility]. [address] FIBRINOGENon 12-28-2018 FIBRINOGEN 190 mg/dL Normal 150-425 [facility] Comment on above: Performed By: #### 0 0071 #### [facility] [address] MAGNESIUM BLOODon 12-28-2018 Magnesium [Mass/Vol] 3.1 mg/dL High 1.9-2.7 [facility] Comment on above: Performed By: #### 5 7307, 66653 #### [facility] [address] [facility] [address], [facility] PERFUSION BLOOD PANELon 12-10 Hematocrit (Bld) [Volume fraction] 30 % Low 38-51 [facility] Comment on above: Performed By: #### 5 7307, 78806 #### [facility] [address] [facility] [place] [address], [facility] Hemoglobin (Bld) [Mass/Vol] 10.2 g/dL Low 12.0-17.0 [facility] Comment on above: Performed By: #### 5 7306, 60159 #### [facility] [address] [place] [address], [place] Oxygen (Bld) [Partial pressure] 46.0 mm[Hg] Normal [facility] Comment on above: Performed By: #### 5 7306, 88684 #### [facility] [address] [place] [address], [place] BASE EXCESS 2.0 mmol/L Normal -2.0-3.0 [facility] Comment on above: Performed By: #### 5 7306, 32795 #### [facility] [address] [place] [address], [place] Glucose [Mass/Vol] 100 mg/dL Normal 70-105 [facility] Comment on above: Performed By: #### 5 7306, 73174 #### [facility] [address] [place] [address], [place] Hematocrit (Bld) [Volume fraction] 30 % Low 38-51 [facility] Comment on above: Performed By: #### 5 7306, 28729 #### [facility] [address] [place] [address], [place] Hemoglobin (Bld) [Mass/Vol] 10.2 g/dL Low 12.0-17.0 [facility] Comment on above: Performed By: #### 5 7306, 17112 #### [facility] [address] [place] [address], [place] IONIZED CALCIUM 1.30 mmol/L Normal 1.12-1.32 [facility] Comment on above: Performed By: #### 5 73, 57765 #### [facility] [address] [place] [address], [place] Oxygen (Bld) [Partial pressure] 487.0 mm[Hg] High 80.0-105.0 [facility] Comment on above: Performed By: #### 5 7306, 95399 #### [facility] [address] [place] [address], [place] PCO2 41.7 mmHg Normal 35.0-45.0 [facility] Comment on above: Performed By: #### 5 7306, 91413 #### [facility] [address] [place] [address], [place] pH (Bld) 7.41 [pH] Normal 7.35-7.45 [facility] Comment on above: Performed By: #### 5 7306, 20280 #### [facility] [address] [place] [address], [place] Potassium [Moles/Vol] 5.1 mmol/L High 3.5-4.9 [facility] Comment on above: Performed By: #### 5 7306, 91140 #### [facility] [address] [place] [address], [place] Sodium [Moles/Vol] 138 mmol/L Normal 138-146 [facility] Comment on above: Performed By: #### 5 7306, 95443 #### [facility] [address] [place] [address], [place] BASE EXCESS 2.0 mmol/L Normal -2.0-3.0 [facility] Comment on above: Performed By: #### 5 7306, 38847 #### [facility] [address] [place] [address], [place] Glucose [Mass/Vol] 109 mg/dL High 70-105 [facility] Comment on above: Performed By: #### 5 7307, 40652 #### [facility] [address] [place] [address], [place] Hematocrit (Bld) [Volume fraction] 28 % Low 38-51 [facility] Comment on above: Performed By: #### 5 7306, 46171 #### [facility] [address] [place] [address], [facility] Hemoglobin (Bld) [Mass/Vol] 9.5 g/dL Low 12.0-17.0 [facility] Comment on above: Performed By: #### 5 7306, 27780 #### [facility] [address] [place] [address], [place] IONIZED CALCIUM 1.02 mmol/L Low 1.12-1.32 [facility] Comment on above: Performed By: #### 5 7306, 36781 #### [facility] [address] [place] [address], [facility] Oxygen (Bld) [Partial pressure] 496.0 mm[Hg] High 80.0-105.0 [facility] Comment on above: Performed By: #### 5 7306, 11307 #### [facility] [address] [place] [address], [facility] PCO2 40.8 mmHg Normal 35.0-45.0 [facility] Comment on above: Performed By: #### 5 7306, 02348 #### [facility] [address] [place] [address], [place] pH (Bld) 7.42 [pH] Normal 7.35-7.45 [facility] Comment on above: Performed By: #### 5 7306, 38475 #### [facility] [address] [place] [address], [place] Potassium [Moles/Vol] 6.0 mmol/L High 3.5-4.9 [facility] Comment on above: Performed By: #### 5 7306, 26641 #### [facility] [address] [place] [address], [place] Sodium [Moles/Vol] 136 mmol/L Low 138-146 [facility] Comment on above: Performed By: #### 5 7306, 00658 #### [facility] [address] [place] [address], [facility] BASE EXCESS 2.0 mmol/L Normal -2.0-3.0 [facility] Comment on above: Performed By: #### 5 7306, 08971 #### [facility] [address] [place] [address], [place] Glucose [Mass/Vol] 96 mg/dL Normal 70-105 [facility] Comment on above: Performed By: #### 5 7306, 05393 #### [facility] [address] [place] [address], [facility] Hematocrit (Bld) [Volume fraction] 27 % Low 38-51 [facility] Comment on above: Performed By: #### 5 7306, 91777 #### [facility] [address] [place] [address], [facility] Hemoglobin (Bld) [Mass/Vol] 9.2 g/dL Low 12.0-17.0 [facility] Comment on above: Performed By: #### 5 7306, 69628 #### [facility] [address] [place] [address], [facility] IONIZED CALCIUM 1.02 mmol/L Low 1.12-1.32 [facility] Comment on above: Performed By: #### 5 7306, 79033 #### [facility] [address] [place] [address], [facility] Oxygen (Bld) [Partial pressure] 418.0 mm[Hg] High 80.0-105.0 [facility] Comment on above: Performed By: #### 5 7306, 69021 #### [facility] [address] [place] [address], [facility] PCO2 38.6 mmHg Normal 35.0-45.0 [facility] Comment on above: Performed By: #### 5 7306, 93141 #### [facility] [address] [place] [address], [facility] pH (Bld) 7.44 [pH] Normal 7.35-7.45 [facility] Comment on above: Performed By: #### 5 7306, 13710 #### [facility] [address] [place] [address], [facility] Potassium [Moles/Vol] 6.0 mmol/L High 3.5-4.9 [facility] Comment on above: Performed By: #### 5 7306, 15488 #### [facility] [address] [place] [id number], [facility] Sodium [Moles/Vol] 137 mmol/L Low 138-146 [facility] Comment on above: Performed By: #### 5 7306, 64850 #### [facility] [address] [place] [address], [facility] BASE EXCESS 2.0 mmol/L Normal -2.0-3.0 [facility] Comment on above: Performed By: #### 5 7306, 79824 #### [facility] [address] [place] [id number], [facility] Glucose [Mass/Vol] 85 mg/dL Normal 70-105 [facility] Comment on above: Performed By: #### 5 7306, 95290 #### [facility] [address] [place] [id number], [facility] Hematocrit (Bld) [Volume fraction] 26 % Low 38-51 [facility] Comment on above: Performed By: #### 5 7306, 57503 #### [facility] [address] [place] [id number], [facility] Hemoglobin (Bld) [Mass/Vol] 8.8 g/dL Low 12.0-17.0 [facility] Comment on above: Performed By: #### 5 7306, 46308 #### [facility] [address] [place] [address], [facility] IONIZED CALCIUM 0.94 mmol/L Low 1.12-1.32 [facility] Comment on above: Performed By: #### 5 7306, 43458 #### [facility] [address] [place] [address], [facility] Oxygen (Bld) [Partial pressure] 572.0 mm[Hg] High 80.0-105.0 [facility] Comment on above: Performed By: #### 5 7306, 86515 #### [facility] [address] [place] [address], [place] PCO2 40.8 mmHg Normal 35.0-45.0 [facility] Comment on above: Performed By: #### 5 7306, 90772 #### [facility] [address] [place] [address], [facility] pH (Bld) 7.43 [pH] Normal 7.35-7.45 [facility] Comment on above: Performed By: #### 5 7306, 74583 #### [facility] [address] [place] [address], [place] Potassium [Moles/Vol] 6.5 mmol/L Critically high 3.5-4.9 [facility] Comment on above: Performed By: #### 5 7306, 45456 #### [facility] [address] [place] [address], [place] Sodium [Moles/Vol] 136 mmol/L Low 138-146 [facility] Comment on above: Performed By: #### 5 7306, 93915 #### [facility] [address] [place] [address], [place] BASE EXCESS -2.0 mmol/L Normal -2.0-3.0 [facility] Comment on above: Performed By: #### 5 7306, 11655 #### [facility] [address] [place] [address], [place] Glucose [Mass/Vol] 96 mg/dL Normal 70-105 [facility] Comment on above: Performed By: #### 5 7306, 46233 #### [facility] [address] [place] [address], [place] Hematocrit (Bld) [Volume fraction] 37 % Low 38-51 [facility] Comment on above: Performed By: #### 7306, 15902 #### [facility] [address] [place] [address], [place] Hemoglobin (Bld) [Mass/Vol] 12.6 g/dL Normal 12.0-17.0 [facility] Comment on above: Performed By: #### 7306, 83668 #### [facility] [address] [place] [address], [place] IONIZED CALCIUM 1.19 mmol/L Normal 1.12-1.32 [facility] Comment on above: Performed By: #### 7306, 03555 #### [facility] [address] [place] [address], [place] Oxygen (Bld) [Partial pressure] 154.0 mm[Hg] High 80.0-105.0 [facility] Comment on above: Performed By: #### 7306, 70239 #### [facility] [address] [place] [address], [place] PCO2 47.5 mmHg High 35.0-45.0 [facility] Comment on above: Performed By: #### 5 7306, 36458 #### [facility] [address] [place] [address], [place] pH (Bld) 7.32 [pH] Low 7.35-7.45 [facility] Comment on above: Performed By: #### 5 7306, 53446 #### [facility] [address] [place] [address], [facility] Sodium [Moles/Vol] 142 mmol/L Normal 138-146 [facility] Comment on above: Performed By: #### 5 7306, 63700 #### [facility] [address] [place] [address], [facility] BASE EXCESS 2.0 mmol/L Normal -2.0-3.0 [facility] Comment on above: Performed By: #### 5 7306, 64522 #### [facility] [address] [place] [address], [facility] Glucose [Mass/Vol] 96 mg/dL Normal 70-105 [facility] Comment on above: Performed By: #### 5 7306, 18523 #### [facility] [address] [place] [address], [facility] Hematocrit (Bld) [Volume fraction] 41 % Normal 38-51 [facility] Comment on above: Performed By: #### 5 7306, 60718 #### [facility] [address] [place] [address], [facility] Hemoglobin (Bld) [Mass/Vol] 13.9 g/dL Normal 12.0-17.0 [facility] Comment on above: Performed By: #### 5 7306, [id number] #### [facility] [address] [place] [id number], [facility] IONIZED CALCIUM 1.18 mmol/L Normal 1.12-1.32 [facility] Comment on above: Performed By: #### 5 [id number], [id number] #### [facility] [address] [place] [address], [facility] Oxygen (Bld) [Partial pressure] 542.0 mm[Hg] High 80.0-105.0 [facility] Comment on above: Performed By: #### 5 [id number], [id number] #### [facility] [address] [place] [address], [facility] PCO2 43.8 mmHg Normal 35.0-45.0 [facility] Comment on above: Performed By: #### 5 [id number], [id number] #### [facility] [address] [place] [address], [place] pH (Bld) 7.40 [pH] Normal 7.35-7.45 [facility] Comment on above: Performed By: #### [id number], [id number] #### [facility] [facility] [address] [place] [address], [facility] Potassium [Moles/Vol] 3.8 mmol/L Normal 3.5-4.9 [facility] Comment on above: Performed By: #### 7306, 21476 #### [facility] [address] [place] [address], [facility] Hematocrit (Bld) [Volume fraction] 41 % Normal 38-51 [facility] Comment on above: Performed By: #### 7306, 48790 #### [facility] [address] [place] [address], [facility] Hemoglobin (Bld) [Mass/Vol] 13.9 g/dL Normal 12.0-17.0 [facility] Comment on above: Performed By: #### 7306, 11846 #### [facility] [address] [place] [address], [place] Oxygen (Bld) [Partial pressure] 52.0 mm[Hg] Normal [facility] Comment on above: Performed By: #### 7306, 31587 #### [facility] [address] [place] [address], [place] POC GLUCOSE LABon 12-28-2018 Glucose [Mass/Vol] 123 mg/dL High 70-100 [facility] Comment on above: Performed By: #### 0 0071 #### [facility] [address] [facility] [address], [facility] Glucose [Mass/Vol] 110 mg/dL High 70-100 [facility] Comment on above: Performed By: #### 8 5499 #### [facility] [address] [facility] [address], [facility] PORTABLE CHEST 1 VIEWon 12-10 PORTABLE CHEST 1 VIEW [facility] Department of Radiology [address] [place] [id number] ======== Patient Name: CLAU KEEN : 1965 Sex: M Age: Race: White Pt. Location: OUTP Patient Status: I Ordered Date: 12/28/2018 7:30:00 PM Completed Date: 12/28/2018 07:52 PM Requesting Provider: AYSE BOWMAN Attending Provider: AURORA IZAGUIRRE Report Copy To: Signs & Symptoms: Post CABG History: See Comments Comments: Check Chest Tube Position, ON ARRIVAL TO CVU Exam: PORTABLE CHEST 1 VIEW ======== PORTABLE CHEST 1 VIEW 12/28/2018 7:52 PM EDT SIGNS AND SYMPTOMS: Post CABG TECHNOLOGIST COMMENTS: Post CABG. Check chest tube position per ordering physician. QUESTION FOR THE RADIOLOGIST: Check Chest Tube Position, ON ARRIVAL TO CVU PROTOCOL: AP(PA) view was obtained. COMPARISON: Chest radiograph December 22, 2018 FINDINGS: Cardiomediastinal silhouette remains unchanged. Trachea is midline. Endotracheal tube measures 3.1 cm from the selma. There are 2 chest tubes, pointing superiorly, one near the midline in the lower left chest and the other in the lateral lower left chest. Mediastinal drain noted. Beyer-Stan catheter in place with tip in the right pulmonary artery. Intact sternotomy wires. No focal parenchymal density, pleural effusion or pneumothorax. No acute osseous abnormality. No subdiaphragmatic free air. IMPRESSION: * Status post CABG. No radiographic evidence of an acute cardiac pulmonary process. * Lines and tubes as described above. Approved by:Shivam Younger on 12/29/2018 1:29 AM EDT. I, Becky Ness, have reviewed the images and report and concur with these findings. Electronically signed by:Becky Ness. Transcribed by: [email or web address], User Resident: SHIVAM YOUNGER Electronically Signed by: BECKY NESS @ 12/29/2018 09:03 AM I personally read this/these film(s) with this resident Normal [facility] Comment on above: Order Comment: Check Chest Tube Position, ON ARRIVAL TO CVU PROTHROMBIN TIMEon 9 INR Coag (PPP) [Relative time] 1.30 {INR} High 0.91-1.16 [facility] Comment on above: Result Comment: ACCC P RECOMMENDED INR FOR WARFARIN THERAPY ------ ------- CONDITION INR PROPHYLAXIS OF VENOUS THROMBOSIS 2-3 (HIGH-RISK SURGERY) TREATMENT OF VENOUS THROMBOSIS 2-3 TREATMENT OF PULMONARY EMBOLISM 2-3 PREVENTION OF SYSTEMIC EMBOLISM: 2-3 ACUTE MYOCARDIAL INFARCTION TISSUE HEART VALVES VALVULAR HEART DISEASE ATRIAL FIBRILLATION RECURRENT SYSTEMIC EMBOLISM MECHANICAL HEART VALVE 2.5-3.5 FROM: ORAL ANTICOAGULANTS. MECHANISM OF ACTION, CLINICAL EFFECTIVENESS, AND OPTIMAL THERAPEUTIC RANGE. CHEST 1995;108:231S-246S. Performed By: #### 0 0071 #### [facility] [address] [place] [address], [facility] PT Coag (PPP) [Time] 16.3 s High 12.3-14.8 [facility] Comment on above: Result Comment: ALL RESULTS MUST BE INTERPRETED WITH RESPECT TO BLOOD DRAWING ARTIFACT OR DILUTION ERROR OF ANTICOAGULANT AT THE TIME OF SAMPLING. Performed By: #### 0 0071 #### [facility] [address] [place], [place] [id number] [place] [address] Pulmonary Functionon 019 Pulmonary Function MR #: [id number] [facility] PT. Name: Clau Keen Date: 12/25/2018 Date of : 1965 Patient Type: D Pulmonary Function INTERPRETATION CLINICAL INDICATION: This is a 53-year-old male with a BMI of 23.7 who has no dyspnea, no cough, no wheeze, but 30-sofe-mmbz history of smoking and is here for a preoperative evaluation. LUNG MECHANICS: There is a mildly reduced FEV1 and mildly reduced FVC with a normal ratio. Pattern appears to be mild degree of restriction. There is a normal MVV with suggestion of a strong chest wall. LUNG VOLUMES: (NITROGEN WASHOUT TECHNIQUE) Not ordered LUNG VOLUMES: (BODY BOX TECHNIQUE) There is a normal total lung capacity and elevated RV. There is a mildly reduced slow vital capacity and normal inspiratory capacity. Pattern is consistent with peripheral gas trapping. LUNG DIFFUSION: There is a moderately reduced DLCO with normal alveolar volume. Pattern is consistent with parenchymal disease. ARTERIAL BLOOD GASES: There is acute hyperventilation. Normal oxygenation. With normal AA gradient. Elevated carboxyhemoglobin consistent with active exposure to tobacco products. CLINICAL IMPRESSION: There is likely some peripheral gas trapping and mild degree of restriction due to obstruction. Moderate reduction of DLCO would support this. There may also be concommittant pulmonary hypertension, pulmonary vascular occlusive disease, or CHF. Electronically Signed by: Mariana Levy M.D. 12/28/2018 11:48 A Mariana Levy M.D. [facility] Date Dict: 12/28/2018/11:43 Talha/Mariana Levy M.D. Date Trans: 12/28/2018 11:43 Talha/ [id number] Normal [facility] RBC'S 2 UNITSon 12-28-2018 CROSSMATCH INTERP 1 COMP Normal [facility] Comment on above: Performed By: #### 5 7307, [id number] #### [facility] [address] [place] [address], [facility] CROSSMATCH INTERP 2 COMP Normal [facility] Comment on above: Performed By: #### 5 7307, 92911 #### [facility] [address] [place] [address], [facility] PRODUCT CODE 1 E0336 Normal [facility] Comment on above: Performed By: #### 5 7307, 43360 #### [facility] [address] [place] [address], [facility] PRODUCT CODE 2 E0336 Normal [facility] Comment on above: Performed By: #### 5 7307, 92328 #### [facility] [address] [place] [address], [facility] PRODUCT STATUS 1 RE Normal [facility] Comment on above: Result Comment: Resu lt changed by IF on 12/28/2018 14:33. The previous value was XM. Result changed by IF on 12/28/2018 19:46. The previous value was IS. Result changed by IF on 01/01/2019 07:16. The previous value was XM. Performed By: #### 5 7307, 93643 #### [facility] [address] [place] [address], [facility] PRODUCT STATUS 2 RE Normal [facility] Comment on above: Result Comment: Resu lt changed by IF on 12/28/2018 14:33. The previous value was XM. Result changed by IF on 12/28/2018 19:46. The previous value was IS. Result changed by IF on 01/01/2019 07:16. The previous value was XM. Performed By: #### 5 7307, 57362 #### [facility] [address] [place] [address], [place] UNIT ABO 1 A Normal [facility] Comment on above: Performed By: #### 5 7306, 37494 #### [facility] [address] [place] [address], [place] UNIT ABO 2 A Normal [facility] Comment on above: Performed By: #### 5 Shahid, 46183 #### [facility] [address] [place] [address], [place] UNIT ID 1 [id number] Normal [facility] Comment on above: Performed By: #### 5 Shahid, 47078 #### [facility] [address] [place] [address], [place] UNIT ID 2 [id number] Normal [facility] Comment on above: Performed By: #### 5 7306, 91056 #### [facility] [address] [place] [address], [place] UNIT RH 1 Positive Normal [facility] Comment on above: Performed By: #### 5 73, 44754 #### [facility] [address] [place] [address], [place] UNIT RH 2 Positive Normal [facility] Comment on above: Performed By: #### 5 7307, 94899 #### [facility] [address] [place] [address], [place] TYPE AND CROSSMATCHon 2018 ABO INTERPRETATION A Normal The [facility] Comment on above: Performed By: #### 5 7307, 51546 #### [facility] [address] [place], [place] [id number] [place] [address] RH INTERPRETATION Positive Normal The [facility] Comment on above: Performed By: #### 5 7307, 78991 #### [facility] [address] [place] [address], [facility] ARTERIAL BLOOD GAS W/COOXon 12-25-2018 BASE EXCESS 2 mmol/L Normal -2-3 [facility] Comment on above: Order Comment: RESUL TS CHECKED AND CALLED. ACCURATELY READ BACK BY DR LEVY TO INTERUPT PFT RESULTS, PT HAS EXTENSIVE SMOKING HX 0948 Performed By: #### 4 0055 #### [facility] [address] [facility] [address] COHB 6.2 % Critically high 0.0-1.5 [facility] Comment on above: Order Comment: RESUL TS CHECKED AND CALLED. ACCURATELY READ BACK BY DR LEVY TO INTERUPT PFT RESULTS, PT HAS EXTENSIVE SMOKING HX 0948 Performed By: #### 4 0055 #### [facility] [address] DELIVERY SYSTEMS ROOM AIR Normal The [facility] Comment on above: Order Comment: RESUL TS CHECKED AND CALLED. ACCURATELY READ BACK BY DR LEVY TO INTERUPT PFT RESULTS, PT HAS EXTENSIVE SMOKING HX 0948 Performed By: #### 4 0055 #### [facility] [address] [facility] [place] [address], [facility] FIO2 21 % Normal [facility] Comment on above: Order Comment: RESUL TS CHECKED AND CALLED. ACCURATELY READ BACK BY DR LEVY TO INTERUPT PFT RESULTS, PT HAS EXTENSIVE SMOKING HX 0948 Performed By: #### 4 0055 #### [facility] [address] [place] [address], [facility] HCO3 (Bld) [Moles/Vol] 26 mmol/L Normal 21-28 [facility] Comment on above: Order Comment: RESUL TS CHECKED AND CALLED. ACCURATELY READ BACK BY DR LEVY TO INTERUPT PFT RESULTS, PT HAS EXTENSIVE SMOKING HX 0948 Performed By: #### 4 0055 #### [facility] [address] [place] [address], [place] METHB 1.2 % Normal 0.0-1.5 [facility] Comment on above: Order Comment: RESUL TS CHECKED AND CALLED. ACCURATELY READ BACK BY DR LEVY TO INTERUPT PFT RESULTS, PT HAS EXTENSIVE SMOKING HX 0948 Performed By: #### 4 0055 #### [facility] [address] [place] [address], [facility] Oxygen (Bld) [Partial pressure] 92 mm[Hg] Normal 83-108 [facility] Comment on above: Order Comment: RESUL TS CHECKED AND CALLED. ACCURATELY READ BACK BY DR LEVY TO INTERUPT PFT RESULTS, PT HAS EXTENSIVE SMOKING HX 0948 Performed By: #### 4 0055 #### [facility] [address] [place] [address], [facility] Oxygen saturation in Blood 91.2 % Low 94.0-97.0 [facility] Comment on above: Order Comment: RESUL TS CHECKED AND CALLED. ACCURATELY READ BACK BY DR LEVY TO INTERUPT PFT RESULTS, PT HAS EXTENSIVE SMOKING HX 0948 Performed By: #### 4 0055 #### [facility] [address] [place] [address], [facility] PCO2 36 mmHg Normal 35-45 [facility] Comment on above: Order Comment: RESUL TS CHECKED AND CALLED. ACCURATELY READ BACK BY DR LEVY TO INTERUPT PFT RESULTS, PT HAS EXTENSIVE SMOKING HX 0948 Performed By: #### 4 0055 #### [facility] [address] [place] [address], [place] pH (Bld) 7.46 [pH] High 7.35-7.45 [facility] Comment on above: Order Comment: RESUL TS CHECKED AND CALLED. ACCURATELY READ BACK BY DR LEVY TO INTERUPT PFT RESULTS, PT HAS EXTENSIVE SMOKING HX 0948 Performed By: #### 4 0055 #### [facility] [address] [facility]. [address] THB 15.3 g/dL Normal 12.0-16.3 [facility] Comment on above: Order Comment: RESUL TS CHECKED AND CALLED. ACCURATELY READ BACK BY DR LEVY TO INTERUPT PFT RESULTS, PT HAS EXTENSIVE SMOKING HX 0948 Performed By: #### 4 0055 #### [facility] [address] *MRSA/MSSA DNA NASALon 12-22 *MRSA/MSSA DNA NASAL Clinical Report: (D) Specimen: NASAL SWAB Collected: 12/22/2018 10:13 Status: Final Last Updated: 12/22/2018 13:52 MSSA DNA (Final) Negative MRSA DNA (Final) Negative Normal [facility] Comment on above: Performed By: #### 3 1595 #### [facility] [address] APTTon 12-22-2018 aPTT Coag (Bld) [Time] 27.3 s Normal 25.0-35.0 [facility] Comment on above: Result Comment: ALL RESULTS MUST BE INTERPRETED WITH RESPECT TO BLOOD DRAWING ARTIFACT OR DILUTION ERROR OF ANTICOAGULANT AT THE TIME OF SAMPLING. THE APTT SHOULD NOT BE USED TO MONITOR UNFRACTIONATED HEPARIN THERAPY, THIS LABORATORY NO LONGER HAS AN ESTABLISHED THERAPEUTIC RANGE BASED ON THE APTT. IT IS RECOMMENDED THAT THE UFH - HEPARIN ASSAY (ANTI-XA ACTIVITY) BE USED FOR THIS PURPOSE. Performed By: #### 5 7307, 87067 #### [facility] [address] BASIC METABOLIC PANELon 12-10 Calcium [Mass/Vol] 9.3 mg/dL Normal 8.6-10.3 [facility] Comment on above: Performed By: #### 0 0071 #### [facility] [address] Chloride [Moles/Vol] 102 mmol/L Normal 98-107 [facility] Comment on above: Performed By: #### 0 0071 #### [facility] [address] [place] [address], [place] CO2 [Moles/Vol] 30 mmol/L Normal 21-31 [facility] Comment on above: Performed By: #### 0 0071 #### [facility] [address] [place] [address], [place] Creatinine [Mass/Vol] 0.85 mg/dL Normal 0.70-1.30 [facility] Comment on above: Performed By: #### 0 0071 #### [facility] [address] [place] [address], [place] GFR/1.73 sq M predicted among blacks MDRD (S/P/Bld) [Vol rate/Area] mL/min/{1.73_m2} Normal >60 [facility] Comment on above: Performed By: #### 0 0071 #### [facility] [address] [place] [address], [place] GFR/1.73 sq M predicted among non-blacks MDRD (S/P/Bld) [Vol rate/Area] mL/min/{1.73_m2} Normal >60 [facility] Comment on above: Performed By: #### 0 0071 #### [facility] [address] [place] [address], [place] Glucose [Mass/Vol] 118 mg/dL High 70-100 [facility] Comment on above: Performed By: #### 0 0071 #### [facility] [address] [place] [address], [place] Potassium [Moles/Vol] 3.7 mmol/L Normal 3.5-5.1 [facility] Comment on above: Performed By: #### 0 0071 #### [facility] [address] [place] [address], [place] Sodium [Moles/Vol] 137 mmol/L Normal 136-145 [facility] Comment on above: Performed By: #### 0 0071 #### [facility] [address] [place] [address], [facility] Urea nitrogen [Mass/Vol] 8 mg/dL Normal 7-25 [facility] Comment on above: Performed By: #### 0 0071 #### [facility] [address] [place] [address], [facility] CBC COMPLETE BLOOD COUNT12-22-2018 Erythrocyte distribution width (RBC) [Ratio] 12.6 % Normal 11.5-15.0 [facility] Comment on above: Performed By: #### 5 0608 #### [facility] [address] [place] [address], [facility] Hematocrit (Bld) [Volume fraction] 45.8 % Normal 39.0-50.0 [facility] Comment on above: Performed By: #### 5 0608 #### [facility] [address] [place] [address], [facility] Hemoglobin (Bld) [Mass/Vol] 15.8 g/dL Normal 13.0-17.0 [facility] Comment on above: Performed By: #### 5 0608 #### [facility] [address] [place] [address], [facility] MCH (RBC) [Entitic mass] 32.4 pg Normal 27.0-33.0 [facility] Comment on above: Performed By: #### 5 0608 #### [facility] [address] [place] [address], [facility] MCHC (RBC) [Mass/Vol] 34.5 g/dL Normal 32.0-35.0 [facility] Comment on above: Performed By: #### 5 0608 #### [facility] [address] [place] [address], [facility] MCV (RBC) [Entitic vol] 93.9 fL Normal 82.0-98.0 [facility] Comment on above: Performed By: #### 5 0608 #### [facility] [address] Nucleated RBC/100 WBC (Bld) [Ratio] 0 % Normal 0-0 [facility] Comment on above: Performed By: #### 5 0608 #### [facility] [address] [facility] [address], [facility] PLAT CNT 185 10*3/uL Normal 150-400 [facility] Comment on above: Performed By: #### 5 0608 #### [address] RBC (Bld) [#/Vol] 4.88 10*6/uL Normal 4.20-5.70 [facility] Comment on above: Performed By: #### 5 0608 #### [facility] [address] WBC (Bld) [#/Vol] 6.80 10*3/uL Normal 4.00-10.60 [facility] Comment on above: Performed By: #### 5 0608 #### [address] CHEST AND LATERALon 12-23-19 19 CHEST AND LATERAL [facility] Department of Radiology [address] [place] [id number] ======== Patient Name: CLAU KEEN : 1965 Sex: M Age: Race: White Pt. Location: Patient Status: O Ordered Date: 12/22/2018 10:30:00 AM Completed Date: 12/22/2018 10:51 AM Requesting Provider: AURORA IZAGUIRRE Attending Provider: AURORA IZAGUIRRE Report Copy To: SELF, REFERRED Signs & Symptoms: Z01.89 Encounter for other specified special examinations I10 History: [place] Comments: , Views (X-RAY, CHEST): Radiologic Protocol , Views (X-RAY, CHEST): Radiologic Protocol , , , Ordering Provider - AURORA IZAGUIRRE MD , Exam: CHEST AND LATERAL ======== CHEST AND LATERAL 12/22/2018 10:51 AM EDT SIGNS AND SYMPTOMS: Z01.89 Encounter for other specified special examinations I10 TECHNOLOGIST COMMENTS: chest pain heart surgery - next week patient states he has 3 bad heart valves QUESTION FOR THE RADIOLOGIST: , Views (X-RAY, CHEST): Radiologic Protocol , Views (X-RAY, CHEST): Radiologic Protocol , , , Ordering Provider - AURORA IZAGUIRRE MD , PROTOCOL: AP(PA) and Lateral views were obtained. COMPARISON: None FINDINGS: The heart and mediastinum are unremarkable. The lungs are free of infiltrates or effusions. IMPRESSION: No acute cardiac or pulmonary pathology is noted. Electronically signed by:Danny Price. Transcribed by: [email or web address], User Resident: Electronically Signed by: DANNY PRICE @ 12/22/2018 02:16 PM Normal [facility] Comment on above: Order Comment: , Henry ws (X-RAY, CHEST): Radiologic Protocol , Views (X-RAY, CHEST): Radiologic Protocol , , , Ordering Provider - AURORA IZAGUIRRE MD , PROTHROMBIN TIMEon 9 INR Coag (PPP) [Relative time] 0.92 {INR} Normal 0.91-1.16 [facility] Comment on above: Result Comment: ACCC P RECOMMENDED INR FOR WARFARIN THERAPY ------ ------- CONDITION INR PROPHYLAXIS OF VENOUS THROMBOSIS 2-3 (HIGH-RISK SURGERY) TREATMENT OF VENOUS THROMBOSIS 2-3 TREATMENT OF PULMONARY EMBOLISM 2-3 PREVENTION OF SYSTEMIC EMBOLISM: 2-3 ACUTE MYOCARDIAL INFARCTION TISSUE HEART VALVES VALVULAR HEART DISEASE ATRIAL FIBRILLATION RECURRENT SYSTEMIC EMBOLISM MECHANICAL HEART VALVE 2.5-3.5 FROM: ORAL ANTICOAGULANTS. MECHANISM OF ACTION, CLINICAL EFFECTIVENESS, AND OPTIMAL THERAPEUTIC RANGE. CHEST 1995;108:231S-246S. Performed By: #### 5 7307, [id number] #### [facility] [address] [place] [address], [facility] PT Coag (PPP) [Time] 12.4 s Normal 12.3-14.8 [facility] Comment on above: Result Comment: ALL RESULTS MUST BE INTERPRETED WITH RESPECT TO BLOOD DRAWING ARTIFACT OR DILUTION ERROR OF ANTICOAGULANT AT THE TIME OF SAMPLING. Performed By: #### 5 7307, 76009 #### [facility] [address] [place] [address], [facility] TYPE AND SCREENon 12-22-2018 ABO INTERPRETATION A Normal [facility] Comment on above: Performed By: #### 6 2586 #### [facility] [address] [place] [address], [place] RH INTERPRETATION Positive Normal [facility] Comment on above: Performed By: #### 6 2586 #### [facility] [address] [place] [address], [place] UA,MICROSCOPIC REQUIREDon Appearance (U) CLEAR Normal CLEAR [facility] Comment on above: Performed By: #### 9 0150 #### [facility] [address] [place] [place] [address], [place] Bilirubin [Mass/Vol] Negative Normal NEGATIVE [facility] Comment on above: Performed By: #### 9 0150 #### [facility] [address] [place] [address], [place] BLOOD Negative Normal NEGATIVE [facility] Comment on above: Performed By: #### 9 0150 #### [facility] [address] [place] [address], [place] Color (U) STRAW Abnormal YELLOW [facility] Comment on above: Performed By: #### 9 0150 #### [facility] [address] [place] [address], [place] EPIS NONE SEEN Normal FEW,OCC,NONE SEEN [facility] Comment on above: Performed By: #### 9 0150 #### [facility] [address] [place] [address], [place] Glucose [Mass/Vol] Negative Normal NEGATIVE [facility] Comment on above: Performed By: #### 9 0150 #### [facility] [address] [place] [address], [place] KETONE Negative Normal NEGATIVE [facility] Comment on above: Performed By: #### 9 0150 #### [facility] [address] [place] [address], [place] LEUK ELLY Negative Normal NEGATIVE [facility] Comment on above: Performed By: #### 9 0150 #### [facility] [facility] [address] [place] [place] [address], [place] Nitrite Ql (U) Negative Normal NEGATIVE [facility] Comment on above: Performed By: #### [id number] #### [facility] [address] [place] [address], [facility] pH (Bld) 7.0 Normal 5.0-8.0 [facility] Comment on above: Performed By: #### 9 [id number] #### [facility] [address] [place] [address], [facility] Protein [Mass/Vol] Negative Normal NEGATIVE [facility] Comment on above: Performed By: #### 9 [id number] #### [facility] [address] [place] [address], [facility] RBC (Bld) [#/Vol] NONE SEEN Normal NONE SEEN [facility] Comment on above: Performed By: #### 9 0150 #### [facility] [address] SPEC GRAV 1.002 Low 1.015-1.020 [facility] Comment on above: Performed By: #### 9 [id number] #### [facility] [address] WBC UA NONE SEEN Normal NONE SEEN [facility] Comment on above: Performed By: #### 9 [id number] #### [facility] [address] Cardiovascular Lab Reporton 12-16-2018 Cardiovascular Lab Report [facility] Patient Name: Clau Keen [facility] MR #: [id number] Physician: Abelardo Brasher of [facility] Date: 12/15/2018 Division of Birthdate: 1965 Cardiology Room #: CC Adult Cardiovascular Services [place] [address] Cardiovascular Laboratory Report INDICATION: This is a 53-year-old man with a significant family history for coronary artery disease. He is a heavy smoker. He was evaluated in Cardiology Clinic because of symptoms of shortness of breath and palpitation. A stress test showed inferior and inferoapical ischemia. He was referred for cardiac catheterization. PROCEDURE: 1. Bilateral selective coronary angiography from the right radial access. 2. FFR assessment of the LAD. 3. Administration of intracoronary nitroglycerin. METHODS: Procedure was explained to the patient with risks and benefits. He signed informed consent. He was brought to production laborer in a fasting state. The right wrist area was prepped and draped in usual fashion. Modified Orion's test was favorable. Access in the right radial artery was obtained using micropuncture technique, a 6-Ghanaian x 11 cm Hydrophilic sheath was advanced. Verapamil was given through the sheath and heparin was administered intravenously. Bilateral selective coronary angiography was then performed using a 6-Ghanaian JL3.5, and an AR2 diagnostic catheters were removed. Therapeutic heparin was confirmed during the rest of the procedure a 6-Ghanaian JL3.5 guiding catheter was used to engage the left main coronary ostium. A Getting-in FFR wire was advanced and equalization of pressure made outside of the guiding catheter. The wire was advanced into the distal LAD. Intracoronary nitroglycerin 100 mcg was administered followed by performance of IFR measurement which was 0.80 indicating a hemodynamically significant stenosis in the LAD. Pullback across the LAD confirmed the location of the stenosis to be in the mid segment. The wire was retracted. Final angiography was performed. Catheter was removed. The TR band was used to achieve hemostasis in the right radial artery. He was transferred to the cardiovascular recovery area. He will be observed for 3 hours before discharge to home. TOTAL FLUORO TIME: 10.42 minutes. TOTAL AIR KERMA: 507 mGy. TOTAL CONTRAST VOLUME: 80 mL. HEMODYNAMICS: AO 123/66, mean 91. CORONARY ANGIOGRAPHY: This is a right dominant circulation. Left main: This arises from the left aortic cusp. It bifurcates into left anterior descending and circumflex vessels. The left main is free of disease. Left anterior descending: This has heavy calcifications in the ostial to proximal segment. In the mid LAD, there is a 70% stenosis at the takeoff of a large septal branch. The rest of the LAD has mild disease. IFR assessment in the LAD localize a hemodynamically significant stenosis in the mid LAD. Circumflex vessel: This is nondominant it is of moderate size and has mild disease. Right coronary artery. This arises from the right coronary cusp. It is a large and dominant vessel. It has a 99.9% stenosis in the ostial segment followed by diffusely calcified disease, high-grade stenosis in the mid segment followed by chronic total occlusion more distally it is seen filling via retrograde collateral circulation coming from the left coronary system. SUMMARY OF THE FINDINGS: 1. Severe 2-vessel coronary artery disease. 2. Heavy calcifications in the proximal to mid LAD as well as the proximal mid and distal right coronary artery. 3. 70% hemodynamically significant stenosis in the mid LAD. 4. Minimal disease in the circumflex vessel which is nondominant vessel. 5. Chronic total occlusion of the proximal to mid right coronary artery with retrograde filling of the distal vessel via collateral circulation. RECOMMENDATIONS: 1. Optimize medical therapy. Imdur 30 mg will be added to this patient's regimen. 2. Discussed options with revascularization to include 2-vessel bypass surgery versus coronary stenting. The presence of heavy calcifications makes stenting procedure less optimal. Electronically Signed by: Abelardo Johnson M.D. 01/08/2019 01:45 A Abelardo Johnson M.D. Date Dict: 12/15/2018/10:00 A/Abelardo Johnson M.D. Date Trans: 12/16/2018 03:57 A/rafa [id number] cc: Mc Jiménez M.D. [address] [place] [address] Normal [facility] Vital Signs Date Time Vital Sign Value Performing Clinician Declan winn 12-29-2018 06:32-0400 Respiratory rate 16 /min PROVIDER UNKNOWN [facility] Comment on above: Performed By: #### 6 [id number] #### [facility] [address] 12-29-2018 04:23-0400 Respiratory rate 16 /min PROVIDER UNKNOWN [facility] Comment on above: Performed By: #### 6 [id number] #### [facility] [address] [place] [address], [facility] 12-28-2018 23:02-0400 Respiratory rate 10 /min PROVIDER UNKNOWN [facility] Comment on above: Performed By: #### 0 0071 #### [facility] [address] [place] [address], [facility] 12-28-2018 21:42-0400 Respiratory rate 12 /min PROVIDER UNKNOWN [facility] Comment on above: Order Comment: on ar rival to CVU Performed By: #### 0 0071 #### [facility] [address] [place] [address], [facility] Encounters Encounter Date Encounter Type Care Provider Facility Start: 09-16-2023 End: 09-16-[address] [facility] Start: 03-26-2023 End: 03-26-2023 ambulatory [facility] Start: 11-26-2022 End: 11-26-2022 ambulatory [facility] Start: 10-10-2022 ambulatory [facility] Normani ty:H1 Start: 10-09-2022 ambulatory [facility] Normani ty:H1 Start: 09-23-2022 End: 09-23-2022 ambulatory [facility] Start: 12-21-2021 End: 12-22-2021 ambulatory LISBET SARKAR Facility:H1 Start: 10-24-2021 End: 10-24-2021 ambulatory INDRA TINSLEY Facility:[facility]1 Start: 10-24-2021 End: 10-25-2021 ambulatory LISBET SARKAR Facility:[facility]1 Start: 12-28-2018 End: 12-31-2018 Evaluation and management of inpatient AURORA MASROOR Facility:[facility] Start: 12-15-2018 End: 12-16-2018 Patient encounter procedure PROVIDER UNKNOWN Facility:[facility] Procedures Date Procedure Procedure Detail Performing Clinician Start: 12-28-2018 Antibody screen PROVIDE R UNKNOWN Comment on above: Performed By: #### 5 [id number], [id number] #### [facility] [address] [facility] [address], [facility] Start: 12-28-2018 BYPASS 1 COR ART FRO M L INT MAMMARY, OPEN APPROACH AURORA MASROOR Start: 12-28-2018 BYPASS 2 COR ART FRO M AORTA WITH AUTOL VN, OPEN APPROACH AURORA MASROOR Start: 12-28-2018 EXCISION OF LEFT SAP HENOUS VEIN, PERC ENDO APPROACH AURORA MASROOR Start: 12-28-2018 INSERTION OF MONITOR DEV INTO PULM TRUNK, PERC APPROACH EDNA Stevie MARGA Start: 12-28-2018 INSERTION OF MONITOR ING DEVICE INTO UP ART, PERC APPROACH EDNA Stevie GRESHAM Start: 12-28-2018 MONITORING OF ARTERI AL SATURATION, PERIPHERAL, PERC APPROACH AURORA MASROOR Start: 12-28-2018 Performance of Cardi ac Output, Continuous AURORA MASROOR Start: 12-28-2018 ULTRASONOGRAPHY OF H EART WITH AORTA, TRANSESOPHAGEAL EDNA GRESHAM Start: 12-22-2018 Antibody screen PROVIDE R UNKNOWN Comment on above: Performed By: #### 6 [id number] #### [facility] [address] [facility]. [address] Payers Date Payer Category Payer Unknown [id number] 1965 Unknown [id number] 2.16.8 [id number] 1965 Unknown [id number] 2.16.8 [id number] 1965 Unknown [id number] 2.16.84 [id number] 1965 Unknown [id number] 2.16.84 [id number] 1965 Unknown [id number] 2.16.84 [id number] 1965 Unknown [id number] 2.16.84 [id number] 1965 Unknown [id number] 2.16.84 [id number] 1961 Medicare [id number] Unknown [id number] Progress note 09-16-2023 Note Date & Type Note Facility 09-16-2023 Note Patient here for 6 m o follow up CAD, hyperlipidemia, hypertension, and claudication. Had routine labs w/ lipid panel in Apr 2023. Denies chest pain, SOB, palpitations, and lightheadedness/syncope. Says his claudication symptoms are improving. Review of Systems Cardiovascular: Positive for claudication (improving). All other systems reviewed and are negative. [facility] Progress note 09-16-2023 Note Date & Type Note Facility 09-16-2023 Note [facility] Subjective Clau Keen is a 58 y.o. year old male patient being seen for Coronary Artery Disease and Claudication Patient Active Problem List Diagnosis Acquired trigger finger Back pain Carpal tunnel syndrome Coronary arteriosclerosis Current smoker High cholesterol Lesion of sensory branch of radial nerve Family History Problem Relation Name Age of Onset Diabetes Mother Coronary artery disease Father Social History Tobacco Use Smoking status: Former Types: Cigarettes Start date: 2001 Quit date: 2019 Years since quittin.3 Smokeless tobacco: Never Substance Use Topics Alcohol use: Yes Alcohol/week: 13.0 standard drinks of alcohol Types: 13 Cans of beer per week Comment: moderate Drug use: Never MARISOL Ramirezdi is seen in follow-up. Visit of 09/23/2022: He is a 57-year-old man with history of coronary disease status post bypass surgery in December 2018. He has hyperlipidemia and was maintained previously on atorvastatin 80 mg daily. This was stopped by his PCP recently as he says. However there are no records from the PCP office to that extent. Today he reports that he does not have chest pain or shortness of breath. He has not been smoking as he reports. He does complain of occasional palpitations. He has significant left lower extremity claudication. His left calf cramps significantly when walking a quarter of a mile. This has been going on for a while. He has no rest pain. He has no ulcers in the feet. Visit of 11/26/2022: At last visit I resumed atorvastatin 40 mg daily. I added amlodipine 10 mg daily for hypertension. due to his claudication I started him on Pletal 100 mg twice daily and referred him to PAD rehab. He could not enroll in PAD rehab due to the significant symptoms he was getting. His ABIs showed significantly reduced BRYNN on the left. Today he reports that he continues to have claudication symptoms mostly on the left. He has no angina no heart failure symptoms. Visit of 03/26/2023: He is seen in follow-up. Today he reports that he has stopped taking Pletal due to feeling palpitations with it. The palpitations stopped after stopping Pletal. He denies angina and heart failure symptoms. No dizziness or lightheadedness. He has been taking the rest of the medications as prescribed. he has started PAD rehab and then continued at home. He reports that he can walk adequate distances without significant limitations at this time from his claudication. He prefers to continue current management. 09/16/2023 He has been feeling well. Denies c/o CP, dyspnea, orthopnea, PND, LE edema, dizziness/LH, palpitations. His claudication sx's continue to improve. He continues to do walking exercise at home. He has also been cutting the grass without difficulty. Review of Systems Cardiovascular: Positive for claudication. Negative for chest pain, dyspnea on exertion, irregular heartbeat, leg swelling, orthopnea, palpitations and syncope. Respiratory: Negative for cough and shortness of breath. Musculoskeletal: Negative for arthritis, falls and neck pain. Gastrointestinal: Negative for diarrhea and dysphagia. Neurological: Negative for light-headedness and loss of balance. Objective Visit Vitals BP 110/66 (BP Location: Right arm, Patient Position: Sitting) Pulse 57 Ht 1.702 m (5' 7 ) Wt 64 kg (141 lb) SpO2 96% BMI 22.08 kg/m??? Smoking Status Former BSA 1.74 m??? Physical Exam Constitutional: Appearance: He is well-developed. He is not ill-appearing. HENT: Head: Normocephalic and atraumatic. Nose: Nose normal. Eyes: General: No scleral icterus. Pupils: Pupils are equal, round, and reactive to light. Neck: Thyroid: No thyromegaly. Vascular: No JVD. Cardiovascular: Rate and Rhythm: Normal rate and regular rhythm. Pulses: Radial pulses are 2+ on the right side and 2+ on the left side. Heart sounds: Normal heart sounds. No murmur heard. No friction rub. No gallop. Pulmonary: Effort: Pulmonary effort is normal. No respiratory distress. Breath sounds: Normal breath sounds. No wheezing or rales. Chest: Chest wall: No tenderness. Abdominal: General: Bowel sounds are normal. There is no distension. Palpations: Abdomen is soft. Tenderness: There is no abdominal tenderness. Musculoskeletal: General: No swelling. Cervical back: Neck supple. Skin: General: Skin is warm and dry. Neurological: General: No focal deficit present. Mental Status: He is alert and oriented to person, place, and time. Psychiatric: Mood and Affect: Mood normal. Behavior: Behavior is cooperative. Judgment: Judgment normal. Allergies No Known Allergies Medications Current Outpatient Medications: amLODIPine (Norvasc) 10 mg tablet, TAKE 1 TABLET BY MOUTH EVERY DAY IN THE MORNING, Disp: 90 tablet, Rfl: 3 aspirin 81 mg EC tablet, in the morning., Disp: , Rfl: atorvastatin (Lipi (more content not included)... [facility] Progress note 03-26-2023 Note Date & Type Note Facility 03-26-2023 Note [facility] Subjective Clau Keen is a 58 y.o. year old male patient being seen for Follow-up Patient Active Problem List Diagnosis Acquired trigger finger Back pain Carpal tunnel syndrome Coronary arteriosclerosis Current smoker High cholesterol Lesion of sensory branch of radial nerve Family History Problem Relation Name Age of Onset Diabetes Mother Coronary artery disease Father Social History Tobacco Use Smoking status: Former Types: Cigarettes Start date: 2001 Quit date: 2020 Years since quittin.8 Smokeless tobacco: Never Substance Use Topics Alcohol use: Yes Alcohol/week: 13.0 standard drinks of alcohol Types: 13 Cans of beer per week Comment: moderate Drug use: Never MARISOL Tesfaye is seen in follow-up. Visit of 09/23/2022: He is a 57-year-old man with history of coronary disease status post bypass surgery in December 2018. He has hyperlipidemia and was maintained previously on atorvastatin 80 mg daily. This was stopped by his PCP recently as he says. However there are no records from the PCP office to that extent. Today he reports that he does not have chest pain or shortness of breath. He has not been smoking as he reports. He does complain of occasional palpitations. He has significant left lower extremity claudication. His left calf cramps significantly when walking a quarter of a mile. This has been going on for a while. He has no rest pain. He has no ulcers in the feet. Visit of 11/26/2022: At last visit I resumed atorvastatin 40 mg daily. I added amlodipine 10 mg daily for hypertension. due to his claudication I started him on Pletal 100 mg twice daily and referred him to PAD rehab. He could not enroll in PAD rehab due to the significant symptoms he was getting. His ABIs showed significantly reduced BRYNN on the left. Today he reports that he continues to have claudication symptoms mostly on the left. He has no angina no heart failure symptoms. Visit of 03/26/2023: He is seen in follow-up. Today he reports that he has stopped taking Pletal due to feeling palpitations with it. The palpitations stopped after stopping Pletal. He denies angina and heart failure symptoms. No dizziness or lightheadedness. He has been taking the rest of the medications as prescribed. he has started PAD rehab and then continued at home. He reports that he can walk adequate distances without significant limitations at this time from his claudication. He prefers to continue current management. Review of Systems Cardiovascular: Positive for claudication. Negative for chest pain, dyspnea on exertion, irregular heartbeat, leg swelling, orthopnea, palpitations and syncope. Respiratory: Negative for cough and shortness of breath. Musculoskeletal: Negative for arthritis, falls and neck pain. Gastrointestinal: Negative for diarrhea and dysphagia. Neurological: Negative for light-headedness and loss of balance. Objective Visit Vitals BP 120/71 Pulse 52 Ht 1.702 m (5' 7 ) Wt 63.5 kg (140 lb) SpO2 99% BMI 21.93 kg/m??? Smoking Status Former BSA 1.73 m??? Physical Exam Constitutional: Appearance: He is well-developed. He is not ill-appearing. HENT: Head: Normocephalic and atraumatic. Nose: Nose normal. Eyes: General: No scleral icterus. Pupils: Pupils are equal, round, and reactive to light. Neck: Thyroid: No thyromegaly. Vascular: No JVD. Cardiovascular: Rate and Rhythm: Normal rate and regular rhythm. Pulses: Radial pulses are 2+ on the right side and 2+ on the left side. Heart sounds: Normal heart sounds. No murmur heard. No friction rub. No gallop. Pulmonary: Effort: Pulmonary effort is normal. No respiratory distress. Breath sounds: Normal breath sounds. No wheezing or rales. Chest: Chest wall: No tenderness. Abdominal: General: Bowel sounds are normal. There is no distension. Palpations: Abdomen is soft. Tenderness: There is no abdominal tenderness. Musculoskeletal: General: No swelling. Cervical back: Neck supple. Skin: General: Skin is warm and dry. Neurological: General: No focal deficit present. Mental Status: He is alert and oriented to person, place, and time. Psychiatric: Mood and Affect: Mood normal. Behavior: Behavior is cooperative. Judgment: Judgment normal. Allergies No Known Allergies Medications Current Outpatient Medications: amLODIPine (Norvasc) 10 mg tablet, Take 1 tablet (10 mg) by mouth in the morning., Disp: 90 tablet, Rfl: 3 aspirin 81 mg EC tablet, in the morning., Disp: , Rfl: atorvastatin (Lipitor) 40 mg tablet, Take 1 tablet (40 mg) by mouth in the morning., Disp: 90 tablet, Rfl: 3 lisinopril 10 mg tablet, Take 10 mg by mouth in the morning., Disp: , Rfl: metoprolol tartrate (Lopressor) 50 mg tablet, metoprolol tartrate 50 mg tablet TAKE 1 TABLET BY MOUTH TWICE A DAY, Disp: , Rfl: Recent Labs No visits with results within 6 (more content not included)... [facility] Progress note 11-26-2022 Note Date & Type Note Facility 11-26-2022 Note [facility] Subjective Clau Keen is a 57 y.o. year old male patient being seen for Follow-up (2 month follow up ) Patient Active Problem List Diagnosis Acquired trigger finger Back pain Carpal tunnel syndrome Coronary arteriosclerosis Current smoker High cholesterol Lesion of sensory branch of radial nerve Family History Problem Relation Name Age of Onset Diabetes Mother Coronary artery disease Father Social History Tobacco Use Smoking status: Former Types: Cigarettes Smokeless tobacco: Never Substance Use Topics Alcohol use: Yes Comment: moderate HPI Mera is seen in follow-up. Visit of 09/23/2022: He is a 57-year-old man with history of coronary disease status post bypass surgery in December 2018. He has hyperlipidemia and was maintained previously on atorvastatin 80 mg daily. This was stopped by his PCP recently as he says. However there are no records from the PCP office to that extent. Today he reports that he does not have chest pain or shortness of breath. He has not been smoking as he reports. He does complain of occasional palpitations. He has significant left lower extremity claudication. His left calf cramps significantly when walking a quarter of a mile. This has been going on for a while. He has no rest pain. He has no ulcers in the feet. Visit of 11/26/2022: At last visit I resumed atorvastatin 40 mg daily. I added amlodipine 10 mg daily for hypertension. due to his claudication I started him on Pletal 100 mg twice daily and referred him to PAD rehab. He could not enroll in PAD rehab due to the significant symptoms he was getting. His ABIs showed significantly reduced BRYNN on the left. Today he reports that he continues to have claudication symptoms mostly on the left. He has no angina no heart failure symptoms. Review of Systems All other systems reviewed and are negative. Objective Visit Vitals BP 117/61 (BP Location: Left arm, Patient Position: Sitting, BP Cuff Size: Adult) Pulse 56 Ht 1.676 m (5' 6 ) Wt 64.4 kg (142 lb) SpO2 98% BMI 22.92 kg/m??? Smoking Status Former BSA 1.73 m??? Physical Exam Constitutional: Appearance: He is well-developed. He is not ill-appearing. HENT: Head: Normocephalic and atraumatic. Nose: Nose normal. Eyes: General: No scleral icterus. Pupils: Pupils are equal, round, and reactive to light. Neck: Thyroid: No thyromegaly. Vascular: No JVD. Cardiovascular: Rate and Rhythm: Normal rate and regular rhythm. Pulses: Radial pulses are 2+ on the right side and 2+ on the left side. Heart sounds: Normal heart sounds. No murmur heard. No friction rub. No gallop. Pulmonary: Effort: Pulmonary effort is normal. No respiratory distress. Breath sounds: Normal breath sounds. No wheezing or rales. Chest: Chest wall: No tenderness. Abdominal: General: Bowel sounds are normal. There is no distension. Palpations: Abdomen is soft. Tenderness: There is no abdominal tenderness. Musculoskeletal: General: No swelling. Cervical back: Neck supple. Skin: General: Skin is warm and dry. Neurological: General: No focal deficit present. Mental Status: He is alert and oriented to person, place, and time. Psychiatric: Mood and Affect: Mood normal. Behavior: Behavior is cooperative. Judgment: Judgment normal. Allergies No Known Allergies Medications Current Outpatient Medications: amLODIPine (Norvasc) 10 mg tablet, Take 1 tablet (10 mg) by mouth in the morning., Disp: 90 tablet, Rfl: 3 aspirin 81 mg EC tablet, in the morning., Disp: , Rfl: atorvastatin (Lipitor) 40 mg tablet, Take 1 tablet (40 mg) by mouth in the morning., Disp: 90 tablet, Rfl: 3 cilostazol (Pletal) 100 mg tablet, Take 1 tablet (100 mg) by mouth in the morning and at bedtime., Disp: 180 tablet, Rfl: 3 lisinopril 10 mg tablet, Take 10 mg by mouth in the morning., Disp: , Rfl: metoprolol tartrate (Lopressor) 50 mg tablet, metoprolol tartrate 50 mg tablet TAKE 1 TABLET BY MOUTH TWICE A DAY, Disp: , Rfl: Recent Labs No visits with results within 6 Month(s) from this visit. Latest known visit with results is: [facility] Encounter on 12/31/2018 Component Date Value Ventricular Rate 12/31/2018 101 Atrial Rate 12/31/2018 101 NH Interval 12/31/2018 156 QRS DURATION 12/31/2018 82 QT Interval 12/31/2018 392 QTC CALCULATION(BEZET) 12/31/2018 508 P Dry Branch 12/31/2018 59 R-Dry Branch 12/31/2018 -4 T Wave Dry Branch 12/31/2018 -22 Diagnosis 12/31/2018 Value:Sinus tachycardia Inferior infarct , age undetermined Abnormal ECG When compared with ECG of 29-DEC-2018 07:57, QT has lengthened Confirmed by Kofi GIRALDO, L.S. (2) on 01/01/2019 1:20:57 PM Blood testing 11/26/2022: Hemoglobin 13.1, platelets 212, potassium 4.8, BUN 11, creatinine 1.21, LFTs normal, triglycerides 81, cholesterol 100, HDL 42, LDL 42. Potassium 4.6, BUN 13, creatinine 1.32, LFTs within normal limits, TSH n (more content not included)... [facility] Progress note 09-23-2022 Note Date & Type Note Facility 09-23-2022 Note [facility] Subjective Clau Keen is a 57 y.o. year old male patient being seen for 1 year follow up CAD and hyperlipidemia. Says PCP (Lisbet Sarkar CNP) stopped his atorvastatin because his cholesterol was low s/p October 2021 lab work. C/o LLE pain after ambulation. Denies chest pain and SOB. C/o coldness in all extremities. Patient Active Problem List Diagnosis Acquired trigger finger Back pain Carpal tunnel syndrome Coronary arteriosclerosis Current smoker High cholesterol Lesion of sensory branch of radial nerve Family History Problem Relation Name Age of Onset Diabetes Mother Coronary artery disease Father Social History Tobacco Use Smoking status: Former Types: Cigarettes Smokeless tobacco: Never Substance Use Topics Alcohol use: Yes Comment: moderate HPI Mera is seen in follow-up. He is a 57-year-old man with history of coronary disease status post bypass surgery in December 2018. He has hyperlipidemia and was maintained previously on atorvastatin 80 mg daily. This was stopped by his PCP recently as he says. However there are no records from the PCP office to that extent. Today he reports that he does not have chest pain or shortness of breath. He has not been smoking as he reports. He does complain of occasional palpitations. He has significant left lower extremity claudication. His left calf cramps significantly when walking a quarter of a mile. This has been going on for a while. He has no rest pain. He has no ulcers in the feet. Review of Systems Cardiovascular: Positive for claudication and palpitations. Musculoskeletal: Positive for myalgias. All other systems reviewed and are negative. Objective Visit Vitals BP 171/89 (BP Location: Right arm, Patient Position: Sitting) Pulse 60 Ht 1.676 m (5' 6 ) Wt 64 kg (141 lb) SpO2 99% BMI 22.76 kg/m??? Smoking Status Former BSA 1.73 m??? Physical Exam Constitutional: Appearance: He is well-developed. He is not ill-appearing. HENT: Head: Normocephalic and atraumatic. Nose: Nose normal. Eyes: General: No scleral icterus. Pupils: Pupils are equal, round, and reactive to light. Neck: Thyroid: No thyromegaly. Vascular: No JVD. Cardiovascular: Rate and Rhythm: Normal rate and regular rhythm. Pulses: Radial pulses are 2+ on the right side and 2+ on the left side. Heart sounds: Normal heart sounds. No murmur heard. No friction rub. No gallop. Pulmonary: Effort: Pulmonary effort is normal. No respiratory distress. Breath sounds: Normal breath sounds. No wheezing or rales. Chest: Chest wall: No tenderness. Abdominal: General: Bowel sounds are normal. There is no distension. Palpations: Abdomen is soft. Tenderness: There is no abdominal tenderness. Musculoskeletal: General: No swelling. Cervical back: Neck supple. Skin: General: Skin is warm and dry. Neurological: General: No focal deficit present. Mental Status: He is alert and oriented to person, place, and time. Psychiatric: Mood and Affect: Mood normal. Behavior: Behavior is cooperative. Judgment: Judgment normal. Allergies No Known Allergies Medications Current Outpatient Medications: aspirin 81 mg EC tablet, in the morning., Disp: , Rfl: lisinopril 10 mg tablet, Take 10 mg by mouth in the morning., Disp: , Rfl: metoprolol tartrate (Lopressor) 50 mg tablet, metoprolol tartrate 50 mg tablet TAKE 1 TABLET BY MOUTH TWICE A DAY, Disp: , Rfl: amLODIPine (Norvasc) 10 mg tablet, Take 1 tablet (10 mg) by mouth in the morning., Disp: 90 tablet, Rfl: 3 atorvastatin (Lipitor) 40 mg tablet, Take 1 tablet (40 mg) by mouth in the morning., Disp: 90 tablet, Rfl: 3 cilostazol (Pletal) 100 mg tablet, Take 1 tablet (100 mg) by mouth in the morning and at bedtime., Disp: 180 tablet, Rfl: 3 Recent Labs No visits with results within 6 Month(s) from this visit. Latest known visit with results is: [facility] Encounter on 12/31/2018 Component Date Value Ventricular Rate 12/31/2018 101 Atrial Rate 12/31/2018 101 NH Interval 12/31/2018 156 QRS DURATION 12/31/2018 82 QT Interval 12/31/2018 392 QTC CALCULATION(BEZET) 12/31/2018 508 P [place] 12/31/2018 59 R-[place] 12/31/2018 -4 T Wave [place] 12/31/2018 -22 Diagnosis 12/31/2018 Value:Sinus tachycardia Inferior infarct , age undetermined Abnormal ECG When compared with ECG of 20-AUG-2019 07:57, QT has lengthened Confirmed by Kofi GIRALDO, L.S. (2) on 01/01/2019 1:20:57 PM Potassium 4.6, BUN 13, creatinine 1.32, LFTs within normal limits, TSH normal. Blood testing 10/17/2021: Hemoglobin 13.1, platelets 187, potassium 4.5, BUN 11, creatinine 1.78, LFTs within normal limits, cholesterol 95, HDL 38, triglycerides 132, LDL 30. Imaging and other tests labs 07/26/20 Bun 11 Cr 1.13- normal LFT normal CHol 188, HDL 40, Trig 225, LDL 103 DATE OF SURGERY: 12/28/2018 SURGEON: Aurora Izaguirre MD PREOPERATIVE DIAGNOSIS: (more content not included)... [facility] Summary Purpose Family History No Family History Records FoundNo Family History Records FoundNo Family History Records Found Advance Directives No Advanced Directives Records FoundNo Advanced Directives Records FoundNo Advanced Directives Records Found Hospital Course Note MR#: [id number] [facility] Pt. Name: Clau Keen Admitted: 12/28/2018 Discharged: 12/31/2018 Date of : 1965 Physician: Aurora Izaguirre MD DISCHARGE SUMMARY DISCHARGE ATTENDING: Dr. Aurora Izaguirre, who is being covered by Dr. Zhou Roqnuillo. PRINCIPAL DIAGNOSIS: Atherosclerotic heart disease of [place] coronary artery developed angina pectoris. HISTORY: The patient is a 53-year-old male with past medical history significant for carpal tunnel, trigger finger, and back pain status post cervical surgeries, who was seen in the office for palpitations and subsequently had an echocardiogram showing good left ventricular function and cardiac catheterization showing occluded dominant RCA and proximal 70% to 80% stenosis of the LAD. The patient is scheduled for coronary artery bypass grafting on December 28, 2018, with instructions to quit smoking only 2 weeks before surgery. ADMISSION MEDICATIONS: Alendronate 70 mg tablet weekly. Aspirin 81 mg tablet daily. Co (more content not included)... Additional Source Comments (unrecognized sect ion and content) No Status Records FoundNo Status Records FoundNo Status Records Found INFORMATION SOURCE (unrecogn ized section and content) DATE CREATED AUTHOR 01/15/2019 [facility] DATE CREATED AUTHOR AUTHOR'S ORGANIZ ATION 10/18/[address] [facility] DATE CREATED AUTHOR AUTHOR'S ORGANIZ ATION 09/17/2023 [facility] FOR RECORDS PERTAINING TO PATIENTS WHO ARE OR HAVE BEEN ENROLLED IN A CHEMICAL DEPENDENCY/SUBSTANCEABUSE PROGRAM, SOME INFORMATION MAY BE OMITTED. This clinical summary was aggregated from multiple sources. Caution should be exercised in using it in the provision of clinical care. This summary normalizes information from multiple sources, and as a consequence, information in this document may materially change the coding, format and clinical context of patient data. In addition, data may be omitted in some cases. CLINICAL DECISIONS SHOULD BE BASED ON THE PRIMARY CLINICAL RECORDS. [employer] provides no warranty or guarantee of the accuracy or completeness of information in this document.
[2024-06-15 09:49] LABS: Basophils Percent Auto 0.5 % (0.2-2.0); Eosinophils Absolute Auto 0.1 10^3/uL (0.0-0.7); Eosinophils Percent Auto 1.8 % (0.9-7.0); Hemoglobin 14.3 g/dL (14.0-18.0); Immature Granulocytes Abs Auto 0.01 10^3/uL (0.00-0.03); Immature Granulocytes Pct Auto 0.2 % (0.0-0.5); Lymphocytes Absolute Auto 1.9 10^3/uL (1.2-3.8); Lymphocytes Percent Auto 28.7 % (20.5-60.0); Mean Corpuscular HGB Conc 34.9 g/dL (29.9-35.2); Mean Corpuscular Hemoglobin 30.6 pg (25.9-34.0); Mean Corpuscular Volume 87.6 fL (80.0-94.0); Mean Platelet Volume 8.6 fL (9.5-13.5); Monocytes Absolute Auto 0.5 10^3/uL (0.3-0.8); Monocytes Percent Auto 6.9 % (1.7-12.0); Neutrophils Absolute Auto 4.1 10^3/uL (1.4-6.5); Neutrophils Percent Auto 61.9 % (43.0-75.0); Platelet Count 226 10^3/uL (150-450); Red Blood Count 4.68 10^6/uL (4.70-6.10); Red Cell Distribution Width 12.4 % (11.0-15.0); White Blood Count 6.6 10^3/uL (4.0-11.0)
[2024-06-15 10:12] LABS: Estimated Average Glucose 117 mg/dL; Glycohemoglobin A1C 5.7 % (4.5-6.2)
[2024-06-15 10:26] LABS: Alanine Aminotransferase 72 U/L (16-63); Albumin Globulin Ratio 1.2; Alkaline Phosphatase 78 U/L (46-116); Anion Gap 12.2; Aspartate Amino Transferase 76 U/L (15-37); BUN Creatinine Ratio 8.1; Bilirubin Total 0.6 mg/dL (0.2-1.0); Carbon Dioxide 29.3 mmol/L (21.0-32.0); Chloride 98 mmol/L (98-107); Chol HDL Ratio 2.4; Cholesterol 116 mg/dL (<=200); Estimated GFR (African America >60 (>=60 mL/min/1.73m^2); Estimated GFR (Non-African Ame >60 (>=60 mL/min/1.73m^2); Globulin 3.3 g/dL; Glucose 107 mg/dL (74-106); HDL Cholesterol 49 mg/dL (40-60); LDL Cholesterol Calculated 54.2 mg/dL; Potassium 4.5 mmol/L (3.5-5.1); Sodium 135 mmol/L (136-145); Total Protein 7.3 g/dL (6.4-8.2); Triglycerides 64 mg/dL (<=150); Uric Acid 3.3 mg/dL (3.5-7.2); VLDL CHOLESTEROL 12.8 mg/dL
[2024-06-15 10:44] LABS: Prostate Specific Antigen Scrn 1.75 ng/mL (<=4.00)
[2024-06-16 08:10] LABS: Insulin 4.3 uIU/mL (2.6-24.9)
== END 2024-06-15 09:17 | disposition home or self-care (01) ==
PROVIDERS: PCP Nurse Practitioner Family; Visit Provider Nurse Practitioner Family
DX: Z00.00 Encounter for general adult medical examination without abnormal findings (principal); E78.2 Mixed hyperlipidemia; E87.1 Hypo-osmolality and hyponatremia; E11.9 Type 2 diabetes mellitus without complications; M10.9 Gout, unspecified; E03.9 Hypothyroidism, unspecified; Z12.5 Encounter for screening for malignant neoplasm of prostate; R53.83 Other fatigue; E78.5 Hyperlipidemia, unspecified
CPT/HCPCS: 36415; 80053; 80061; 83036; 83525; 84436; 84443; 84481; 84550; 85025; G0103